=== PATIENT | female | born 1975 | race Caucasian/White ===

== ENCOUNTER 2017-02-05 17:36 | Emergency (ER) | payer OTHER ==
[~2017-02-05] VITALS: Ht 160 cm; Wt 161.4 kg
[~2017-02-05 17:36] MED LIST: CYCL-36 PO; DICL75 PO
[2017-02-05 17:48] VITALS: BP 185/83; PULSE 86; RESP 16; TEMP 99.3; O2SAT 98
--- NOTE | 2017-02-05 17:56 | PD ---
HPI Chief Complaint: Cold / Flu Symptoms Time Seen by Provider: 17:56 Travel History International Travel<30 days: Yes Contact w/Intl Traveler<30days: [place] Traveled to: [place] Traveled to known affect area: No History of Present Illness HPI 42-year-old female presents the emergency department with history of fever of 102.5, chills, cough, sore throat, chest congestion, and urinary symptoms since this morning. The fever and upper respiratory symptoms started 3 days ago. Patient states she feels worse today than she did yesterday. Significant history is that the patient just got off a cruise today. She denies nausea, vomiting, but has had some mild diarrhea. Chest feels tight and cough is nonproductive. Patient has generalized body aches with pain about a 6 out of 10. Urinary symptoms started first thing this morning. PFSH Past Medical History Blood Disorders: No Heart Rhythm Problems: No Cancer: No Cardiac Catheterization: No Cardiovascular Problems: No High Cholesterol: No Congestive Heart Failure: No Diabetes: No Diminished Hearing: No Endocrine: No Gastrointestinal Disorders: No Genitourinary: Yes Hypertension: No Immune Disorder: No Implanted Vascular Access Dvce: No Kidney Stones: Yes Musculoskeletal: No Neurologic: No Psychiatric: No Reproductive: No Respiratory: Yes (sleep apnea) Sleep Apnea: Yes (WEARS CPAP) ?: Not LMP: 2 weeks ago Menopausal: Yes : 1 Para: 1 Ovarian Cysts: Yes (bilateral) Past Surgical History Abdominal Surgery: No Cardiac Surgery: No Cholecystectomy: Yes (2012) Coronary Artery Bypass Graft: No Ear Surgery: No Endocrine Surgery: No Eye Surgery: No Genitourinary Surgery: No Gynecologic Surgery: No Neurologic Surgery: No Oral Surgery: No Pacemaker: No Thoracic Surgery: No Other Surgery: Yes Social History Alcohol Use: Yes (WINE OCCASIONALLY) Tobacco Use: No (QUIT JAN 2012) Substance Use: No Allergies-Medications (Allergen,Severity, Reaction): Coded Allergies: tramadol (Unverified Allergy, Severe, Anaphylaxis, 02/05/17) pt states does not have to this medication takes this medication for knee pain. estela Domingo 02/05/17 Reported Meds & Prescriptions Reported Meds & Active Scripts Active Flexeril (Cyclobenzaprine HCl) 10 Mg Tab 10 Mg PO TID PRN Do not drive on medication. Do not take with alcohol. Diclofenac Sodium 75 Mg Tab 75 Mg PO BID PRN Review of Systems Except as stated in HPI: all other systems reviewed are Neg General / Constitutional: Positive: Fever, Chills Eyes: No: Visual changes HENT: Positive: Headaches, Sore Throat, Rhinitis, Rhinorrhea, Congestion, No: Vertigo, Lightheadedness, Nosebleed, Neck Stiffness, Neck Pain, Ear Discharge, Earache Cardiovascular: No: Chest Pain or Discomfort Respiratory: Positive: Cough, Shortness of Breath, Wheezing, No: Sneezing Gastrointestinal: No: Nausea, Vomiting, Diarrhea, Abdominal Pain Genitourinary: Positive: Urgency, Frequency, Dysuria Musculoskeletal: No: Pain Skin: No Rash Neurologic: No: Weakness Psychiatric: No: Depression Endocrine: No: Polydipsia Hematologic/Lymphatic: No: Easy Bruising Physical Exam Narrative GENERAL: Patient appears ill but not septic. SKIN: Warm and dry. Normal color. Normal turgor. No rash. HEAD: Atraumatic. Normocephalic. EYES: Pupils equal and round. No scleral icterus. No injection or drainage. ENT: No nasal bleeding or discharge. Mucous membranes pink and moist. TMs are dull bilaterally with mild injection. Patient is no sinus tenderness with palpation. Patient is clear rhinitis.. Severe pharynx is generalized erythema and swelling without exudate. Uvula is midline. Airway is patent. NECK: Trachea midline. Supple nontender CARDIOVASCULAR: Regular rate and rhythm. RESPIRATORY: No accessory muscle use. Coarse breath sounds throughout to auscultation. No rhonchi or rales appreciated Breath sounds equal bilaterally. GASTROINTESTINAL: Abdomen soft, non-tender, nondistended. Hepatic and splenic margins not palpable. No CVA tenderness. MUSCULOSKELETAL: Extremities without clubbing, cyanosis, or edema. No obvious deformities. NEUROLOGICAL: Awake and alert. No obvious cranial nerve deficits. Motor grossly within normal limits. Five out of 5 muscle strength in the arms and legs. Normal speech. PSYCHIATRIC: Appropriate mood and affect; insight and judgment normal. Data Data Last Documented VS Vital Signs Date Time Temp Pulse Resp B/P (MAP) Pulse Ox O2 Delivery O2 Flow Rate FiO2 02/05/17 17:48 99.3 86 16 185/83 (117) 98 Orders Orders Influenzae A/B Antigen (02/05/17 18:03) Group A Rapid Strep Screen (02/05/17 18:03) Urinalysis - C+S If Indicated (02/05/17 18:03) Strep Culture (Group A) (02/05/17 18:00) Labs Laboratory Tests Test 02/05/17 18:00 Urine Collection Type CLEAN CATCH Urine Color YELLOW Urine Turbidity CLEAR Urine pH 6.5 Urine Specific [place] 1.020 Urine Protein NEG mg/dL Urine Glucose (UA) NEG mg/dL Urine Ketones NEG mg/dL Urine Occult Blood TRACE Urine Nitrite NEG Urine Bilirubin NEG Urine Leukocyte Esterase NEG Urine WBC 0-2 /hpf Urine Squamous Epithelial Cells 0-5 /hpf Microscopic Urinalysis Comment CULT NOT INDICATED MDM Medical Decision Making Medical Screen Exam Complete: Yes Emergency Medical Condition: Yes Differential Diagnosis Urinary tract infection. Dysuria. Upper respiratory infection. Influenza. Cough. Strep throat. Narrative Course Patient is medically stable at time of exam. Labs ordered including urinalysis, rapid influenza, and rapid strep. Rapid influenza is negative. Rapid strep is negative. Urinalysis is unremarkable. Patient will be treated with azithromycin Dosepak as directed. Patient also given Tussionex elixir, teaspoon every 12 hours when necessary cough Patient is to rest, take Tylenol and ibuprofen, push fluids. Patient follow-up if symptoms do not improve or worsen in the next several days. Diagnosis Primary Impression: Upper respiratory infection, acute Additional Impressions: Cough Fever and chills Referrals: Primary Care Physician Patient Instructions: Acute Bronchitis (ED), General Instructions Additional Instructions: Rapid influenza is negative. Rapid strep is negative. Urinalysis is unremarkable. Patient will be treated with azithromycin Dosepak as directed. Patient also given Tussionex elixir, teaspoon every 12 hours when necessary cough Patient is to rest, take Tylenol and ibuprofen, push fluids. Patient follow-up if symptoms do not improve or worsen in the next several days. Med/Other Pt SpecificInfo: Prescription(s) given Scripts Hydrocodone-Chlorpheniramine 12 HR Liq (Tussionex Pennkinetic Ext 12 HR Liq) 10- 8 Mg/5 Ml Susp 5 ML PO Q12H Y for COUGH AND/OR COLD SYMPTOMS, #60 ML 0 Refills Prov: Mohinder Wooten MD 02/05/17 Azithromycin (Azithromycin) 250 Mg Tab 250 MG PO DIRECTED for Infection, #6 TAB 0 Refills Take 2 tabs (500 mg) on day 1 then 1 tab daily x 4 days. Prov: Mohinder Wooten MD 02/05/17 Disposition: 01 DISCHARGE HOME Condition: Stable Shane Marrero Feb 05, 2017 17:56
[2017-02-05 18:35] LABS: BLOOD, URINE TRACE (NEG); GLUCOSE,URINE NEG (NEG); KETONE, URINE NEG (NEG); NITRITE,URINE NEG (NEG); PH, URINE 6.5 (5.0-8.5)
[2017-02-05 18:37] LABS: METHOD OF COLLECTION CLEAN CATCH; URINE COLOR YELLOW (YELLW/STRAW)
[2017-02-05 18:38] LABS: COMMENT (UR) CULT NOT INDICATED; CULTURE IF INDICATED CULT NOT INDICATED; SQUAMOUS EPITHELIAL CELL URINE 0-5 /hpf (0-5); WBC, URINE 0-2 /hpf (0-5)
[2017-02-05] MEDS ORDERED: AZIT250T3 PO (18:45)
[2017-02-05] MEDS ORDERED: TUSSSUS2 PO (18:45)
== END 2017-02-05 19:12 | disposition home or self-care (01) ==
LOC: PHEFT 17:36
DX: J06.9 Acute upper respiratory infection, unspecified (principal); Z87.891 Personal history of nicotine dependence
CPT/HCPCS: 81001; 87081; 87804; 87880; 99284

== ENCOUNTER → 2017-02-21 | Emergency (ER) | payer OTHER ==
[~2017-02-21] VITALS: Ht 160 cm; Wt 161.0 kg
[~2017-02-21] MED LIST changes: +AZIT250T3 PO; +BACT800T5 PO; +CEPH-460 PO; +TUSSSUS2 PO
[2017-02-21 22:27] VITALS: BP 171/98; PULSE 87; RESP 18; TEMP 98.8; O2SAT 98
== END | disposition left against medical advice (07) ==
LOC: PHED 22:12
DX: S80.862A Insect bite (nonvenomous), left lower leg, initial encounter (principal); W57.XXXA Bitten or stung by nonvenomous insect and other nonvenomous arthropods, initial encounter
CPT/HCPCS: 99281

== ENCOUNTER 2017-02-22 08:09 | Emergency (ER) | payer OTHER ==
[~2017-02-22] VITALS: Ht 160 cm; Wt 160.0 kg
[~2017-02-22 08:09] MED LIST changes: -BACT800T5 PO; -CEPH-460 PO
[2017-02-22 08:10] VITALS: BP 193/88; PULSE 71; RESP 16; TEMP 98.9; O2SAT 98
[2017-02-22 08:27] VITALS: BP 132/67; PULSE 66; RESP 21; O2SAT 98
[2017-02-22] MEDS ORDERED: CEPH-460 PO (08:27)
[2017-02-22] MEDS ORDERED: BACT800T5 PO (08:28)
--- NOTE | 2017-02-22 08:29 | PD ---
HPI Chief Complaint: Skin Problem Time Seen by Provider: 08:20 Travel History International Travel<30 days: No Contact w/Intl Traveler<30days: Yes Name of Country Traveled to: [place], [place] Traveled to known affect area: No History of Present Illness HPI 42-year-old female states she had a insect bite to her right thigh that got infected so she went to her primary early this week and was placed on Keflex. When it got worse she went to [place] [facility] last night but left without being seen as it hurt to be sitting. She states that she has no other concurrent complaints. She states that she has been taking Motrin and Tylenol for the pain. Quality is red. She shows me pictures as to how it was which involve redness extensively to her upper thigh. She's never had any joint involvement. PFSH Past Medical History Blood Disorders: No Heart Rhythm Problems: No Cancer: No Cardiac Catheterization: No Cardiovascular Problems: No High Cholesterol: No Congestive Heart Failure: No Diabetes: No Diminished Hearing: No Endocrine: No Gastrointestinal Disorders: No Genitourinary: Yes Heparin Induced Thrombocytopen: No Hypertension: No Immune Disorder: No Implanted Vascular Access Dvce: No Kidney Stones: Yes Musculoskeletal: No Neurologic: No Psychiatric: No Reproductive: No Respiratory: Yes (sleep apnea) Sleep Apnea: Yes (WEARS CPAP) Tetanus Vaccination: > 5 Years Influenza Vaccination: No ?: Not Menopausal: Yes : 1 Para: 1 Ovarian Cysts: Yes (bilateral) Past Surgical History Abdominal Surgery: No Cardiac Surgery: No Cholecystectomy: Yes (2012) Coronary Artery Bypass Graft: No Ear Surgery: No Endocrine Surgery: No Eye Surgery: No Genitourinary Surgery: No Gynecologic Surgery: No Oral Surgery: No Pacemaker: No Thoracic Surgery: No Other Surgery: Yes Social History Alcohol Use: Yes (WINE OCCASIONALLY) Tobacco Use: No (QUIT JAN 2012) Substance Use: No Allergies-Medications (Allergen,Severity, Reaction): Coded Allergies: tramadol (Unverified Allergy, Severe, Anaphylaxis, 02/22/17) pt states does not have to this medication takes this medication for knee pain. estela Domingo 02/05/17 Reported Meds & Prescriptions Reported Meds & Active Scripts Active Bactrim DS (Sulfamethoxazole-Trimethoprim) 800-160 Mg Tab 1 Tab PO BID 7 Days Reported Keflex (Cephalexin) 500 Mg Capsule 500 Mg PO TID Review of Systems Except as stated in HPI: all other systems reviewed are Neg Physical Exam Narrative GENERAL: Well-nourished, well-developed patient. SKIN: To upper inner right thigh there is approximately quarter-sized area of redness that has a central opening without underlying induration or crepitus HEAD: Normocephalic and atraumatic. EYES: No injection or drainage. ENT: No nasal drainage noted. NECK: Supple, trachea midline. CARDIOVASCULAR: Regular rate and rhythm RESPIRATORY: No increased effort. No accessory muscle use. GASTROINTESTINAL: Abdomen soft, non-tender, nondistended. NEUROLOGICAL: Awake and alert. Motor and sensory grossly within normal limits. Normal speech. Data Data Last Documented VS Vital Signs Date Time Temp Pulse Resp B/P (MAP) Pulse Ox O2 Delivery O2 Flow Rate FiO2 02/22/17 08:27 66 21 132/67 (88) 98 Room Air 02/22/17 08:10 98.9 Orders Orders Blood Glucose (02/22/17 08:27) [facility] Medical Decision Making Medical Screen Exam Complete: Yes Emergency Medical Condition: Yes Medical Record Reviewed: Yes (pmh confirmed) Interpretation(s) glucose 101 Differential Diagnosis Diabetes, cellulitis, insect bite, abscess Narrative Course Patient has what appears to be healing cellulitis from an insect bite but to provide staph coverage I will add Bactrim as by now it should be fully resolved given duration of antibiotic therapy. Patient agrees to this plan of care and warm compresses. No drainable abscess currently. Advised to follow with primary for recheck in 2 days, given return instructions Diagnosis Primary Impression: Insect bite Qualified Codes: W57.XXXA - Bitten or stung by nonvenomous insect and other nonvenomous arthropods, initial encounter Additional Impression: Cellulitis Qualified Codes: L03.115 - Cellulitis of right lower limb Patient Instructions: General Instructions Additional Instructions: warm compresses to area three times a day, follow with primary for recheck on monday, return as needed Med/Other Pt SpecificInfo: Prescription(s) given Scripts Sulfamethoxazole-Trimethoprim (Bactrim DS) 800-160 Mg Tab 1 TAB PO BID for Infection for 7 Days, #14 TAB 0 Refills Prov: Kortney Anderson MD 02/22/17 Disposition: 01 DISCHARGE HOME Condition: Stable Kortney Anderson MD Feb 22, 2017 08:29
== END 2017-02-22 08:56 | disposition home or self-care (01) ==
LOC: NEPE 08:09
DX: L03.115 Cellulitis of right lower limb (principal); G47.30 Sleep apnea, unspecified; Z87.442 Personal history of urinary calculi; Z79.899 Other long term (current) drug therapy; Z88.5 Allergy status to narcotic agent
CPT/HCPCS: 99283

== ENCOUNTER 2017-05-16 09:04 | Emergency (ER) | payer OTHER ==
[~2017-05-16] VITALS: Ht 160 cm; Wt 160.0 kg
[~2017-05-16 09:04] MED LIST changes: -AZIT250T3 PO; +BACT800T5 PO; +CEPH-460 PO; -CYCL-36 PO; -DICL75 PO; -TUSSSUS2 PO
[2017-05-16 09:07] VITALS: BP 179/99; PULSE 98; RESP 18; TEMP 100.1; O2SAT 97
[2017-05-16] MEDS ORDERED: SODIUM CHLOR 0.9% 1000 ML INJ 1,000 ML IV SCH (09:41)
[2017-05-16] MEDS ORDERED: SODIUM CHLORIDE 0.9% FLUSH 10 ML FLUSH IV FLUSH PRN (09:45)
[2017-05-16] MEDS ORDERED: ONDANSETRON HCL 4 MG/2 ML VIAL IVP ONE (09:45)
--- NOTE | 2017-05-16 09:54 | PD ---
HPI Chief Complaint: GI Complaint Time Seen by Provider: 09:14 Travel History International Travel<30 days: No Contact w/Intl Traveler<30days: No Traveled to known affect area: No History of Present Illness HPI The patient was seen and examined in the presence of the nurse. This patient complains of vomiting and diarrhea. Duration 3 days. Severity is moderate. 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 She is not having some low-grade fevers. Denies cough. No alleviating factors. Symptoms exacerbated by current outbreak at intermediate [facility] Past Medical History Blood Disorders: No Heart Rhythm Problems: No Cancer: No Cardiac Catheterization: No Cardiovascular Problems: No High Cholesterol: No Congestive Heart Failure: No Diabetes: No Diminished Hearing: No Endocrine: No Gastrointestinal Disorders: No Genitourinary: Yes Heparin Induced Thrombocytopen: No Hypertension: No Immune Disorder: No Implanted Vascular Access Dvce: No Kidney Stones: Yes Musculoskeletal: No Neurologic: No Psychiatric: No Reproductive: No Respiratory: Yes (sleep apnea) Sleep Apnea: Yes (WEARS CPAP) ?: Not Menopausal: Yes : 1 Para: 1 Ovarian Cysts: Yes (bilateral) Past Surgical History Abdominal Surgery: No Cardiac Surgery: No Cholecystectomy: Yes (2012) Coronary Artery Bypass Graft: No Ear Surgery: No Endocrine Surgery: No Eye Surgery: No Genitourinary Surgery: No Gynecologic Surgery: No Oral Surgery: No Pacemaker: No Thoracic Surgery: No Other Surgery: Yes Social History Alcohol Use: Yes (WINE OCCASIONALLY) Tobacco Use: No (QUIT JAN 2012) Substance Use: No Allergies-Medications (Allergen,Severity, Reaction): Coded Allergies: No Known Allergies (Unverified , 05/16/17) Reported Meds & Prescriptions Reported Meds & Active Scripts Active Zofran (Ondansetron HCl) 4 Mg Tab 4 Mg PO Q6HR PRN Bactrim DS (Sulfamethoxazole-Trimethoprim) 800-160 Mg Tab 1 Tab PO BID 7 Days Reported Keflex (Cephalexin) 500 Mg Capsule 500 Mg PO TID Review of Systems General / Constitutional: Positive: Fever Eyes: No: Visual changes HENT: No: Headaches Cardiovascular: No: Chest Pain or Discomfort Respiratory: No: Shortness of Breath Gastrointestinal: Positive: Nausea, Vomiting, Diarrhea, No: Abdominal Pain Genitourinary: No: Dysuria Musculoskeletal: No: Pain Skin: No Rash Neurologic: No: Weakness Psychiatric: No: Depression Endocrine: No: Polydipsia Hematologic/Lymphatic: No: Easy Bruising Physical Exam Narrative GENERAL: Well-nourished, well-developed patient in no apparent distress. SKIN: Focused skin assessment reveals no rash and nodules. Skin is Warm and dry. HEAD: Atraumatic. Normocephalic. EYES: Pupils equal and round. No scleral icterus. No injection or drainage. ENT: No nasal bleeding or discharge. Mucous membranes pink and moist. NECK: Trachea midline. No JVD. CARDIOVASCULAR: Regular rate and rhythm. No murmur appreciated. RESPIRATORY: No accessory muscle use. Clear to auscultation. Breath sounds equal bilaterally. GASTROINTESTINAL: Abdomen soft, non-tender, morbidly obese, nondistended. Hepatic and splenic margins not palpable. MUSCULOSKELETAL: No obvious deformities. No clubbing. No cyanosis. No edema. NEUROLOGICAL: Awake and alert. No obvious cranial nerve deficits. Motor grossly within normal limits. Normal speech. PSYCHIATRIC: Appropriate mood and affect; insight and judgment normal. Data Data Last Documented VS Vital Signs Date Time Temp Pulse Resp B/P (MAP) Pulse Ox O2 Delivery O2 Flow Rate FiO2 05/16/17 09:07 100.1 98 18 179/99 (125) 97 Orders Orders Basic Metabolic Panel (Bmp) (05/16/17 09:41) Complete Blood Count With Diff (05/16/17 09:41) Iv Access Insert/Monitor (05/16/17 09:41) Ondansetron Inj (Zofran Inj) (05/16/17 09:45) Sodium Chlor 0.9% 1000 Ml Inj (Ns 1000 M (05/16/17 09:41) Sodium Chloride 0.9% Flush (Ns Flush) (05/16/17 09:45) Labs Laboratory Tests Test 05/16/17 09:56 05/16/17 11:00 White Blood Count 9.2 TH/MM3 Red Blood Count 5.52 MIL/MM3 Hemoglobin 16.2 GM/DL Hematocrit 47.1 % Mean Corpuscular Volume 85.3 FL Mean Corpuscular Hemoglobin 29.3 PG Mean Corpuscular Hemoglobin Concent 34.4 % Red Cell Distribution Width 13.4 % Platelet Count 204 TH/MM3 Mean Platelet Volume 7.7 FL Neutrophils (%) (Auto) 88.2 % Lymphocytes (%) (Auto) 5.9 % Monocytes (%) (Auto) 5.1 % Eosinophils (%) (Auto) 0.4 % Basophils (%) (Auto) 0.4 % Neutrophils # (Auto) 8.1 TH/MM3 Lymphocytes # (Auto) 0.5 TH/MM3 Monocytes # (Auto) 0.5 TH/MM3 Eosinophils # (Auto) 0.0 TH/MM3 Basophils # (Auto) 0.0 TH/MM3 CBC Comment DIFF FINAL Differential Comment Blood Urea Nitrogen 12 MG/DL Creatinine 0.73 MG/DL Random Glucose 83 MG/DL Calcium Level 7.9 MG/DL Sodium Level 138 MEQ/L Potassium Level 4.8 MEQ/L Chloride Level 108 MEQ/L Carbon Dioxide Level 24.2 MEQ/L Anion Gap 6 MEQ/L Estimat Glomerular Filtration Rate 88 ML/MIN MDM Medical Decision Making Medical Screen Exam Complete: Yes Emergency Medical Condition: Yes Medical Record Reviewed: Yes Differential Diagnosis Gastroenteritis, food poisoning, colitis Narrative Course I have reviewed the patient's electronic medical record. IV placed CBC is normal metabolic profile is reasonably normal Gave her 1 L IV normal saline and 4 mg IV Zofran Abdomen soft and benign and nontender Patient is well-hydrated and stable for outpatient follow-up. Seemed to have a viral gastroenteritis. Zofran prescribed. Diagnosis Primary Impression: Viral gastroenteritis Additional Instructions: The patient was advised to follow up with their physician and return if they worsen. Med/Other Pt SpecificInfo: Prescription(s) given Scripts Ondansetron (Zofran) 4 Mg Tab 4 MG PO Q6HR Y for NAUSEA OR VOMITING, #12 TAB 0 Refills Prov: Dario Starkey MD 05/16/17 Disposition: DISCHARGE HOME Condition: Stable Dario Starkey MD May 16, 2017 09:54
[2017-05-16 10:08] LABS: AUTOMATED NEUTROPHIL # 8.1 TH/MM3 (1.8-7.7); BASOPHIL % 0.4 % (0.0-2.0); EOSINOPHIL % 0.4 % (0.0-4.0); HEMATOCRIT 47.1 % (35.0-46.0); HEMOGLOBIN 16.2 GM/DL (11.6-15.3); LYMPH % 5.9 % (9.0-44.0); LYMPHOCYTE # 0.5 TH/MM3 (1.0-4.8); MEAN CELL VOLUME 85.3 FL (80.0-100.0); MEAN CORPUSCULAR HEMOGLOBIN 29.3 PG (27.0-34.0); MEAN CORPUSCULAR HGB CONC 34.4 % (32.0-36.0); MEAN PLATELET VOLUME 7.7 FL (7.0-11.0); MONO % 5.1 % (0.0-8.0); MONOCYTE # 0.5 TH/MM3 (0-0.9); NEUT % 88.2 % (16.0-70.0); PLATELET COUNT 204 TH/MM3 (150-450); RED BLOOD COUNT 5.52 MIL/MM3 (4.00-5.30); RED CELL DISTRIBUTION WIDTH 13.4 % (11.6-17.2); WHITE BLOOD COUNT 9.2 TH/MM3 (4.0-11.0)
[2017-05-16 11:45] LABS: BICARBONATE 24.2 MEQ/L (21.0-32.0); CALCIUM 7.9 MG/DL (8.5-10.1); CREATININE 0.73 MG/DL (0.50-1.00)
[2017-05-16] MEDS ORDERED: ZOFR4TAB PO (12:28)
== END 2017-05-16 13:03 | disposition home or self-care (01) ==
LOC: NEPD 09:04
DX: A08.4 Viral intestinal infection, unspecified (principal)
CPT/HCPCS: 80048; 85025; 96360; 99284; J2405; J7030

== ENCOUNTER 2017-08-23 06:49 | Emergency (ER) | payer OTHER ==
[~2017-08-23] VITALS: Ht 157.5 cm; Wt 146.0 kg
[~2017-08-23 06:49] MED LIST changes: +ZOFR4TAB PO
[2017-08-23 07:04] VITALS: BP 156/95; PULSE 72; RESP 16; TEMP 98.5; O2SAT 99
[2017-08-23] MEDS ORDERED: IBUPROFEN 800 MG TAB PO ONE (07:15)
--- NOTE | 2017-08-23 07:36 | PD ---
HPI Chief Complaint: Injury Time Seen by Provider: 07:10 Travel History International Travel<30 days: No Contact w/Intl Traveler<30days: No Traveled to known affect area: No History of Present Illness HPI 42-year-old female presents emergency department with pain, redness, and swelling to the left ulnar wrist. Patient states she was helping a friend move yesterday moving a heavy box, when she felt something "pop" in her left wrist. She now has increasing pain, swelling, redness, and decreased range of motion secondary to pain over the distal ulna. She denies numbness, tingling, or weakness other than from pain. Pain is currently 8 out of 10. Range of motion is limited secondary to pain. She has no known drug allergies. PFSH Past Medical History Blood Disorders: No Heart Rhythm Problems: No Cancer: No Cardiac Catheterization: No Cardiovascular Problems: No High Cholesterol: No Congestive Heart Failure: No Diabetes: No Diminished Hearing: No Endocrine: No Gastrointestinal Disorders: No Genitourinary: Yes Heparin Induced Thrombocytopen: No Hypertension: No Immune Disorder: No Implanted Vascular Access Dvce: No Kidney Stones: Yes Musculoskeletal: No Neurologic: No Psychiatric: No Reproductive: No Respiratory: Yes (sleep apnea) Sleep Apnea: Yes (WEARS CPAP) ?: Not Menopausal: Yes : 1 Para: 1 Ovarian Cysts: Yes (bilateral) Past Surgical History Abdominal Surgery: No Cardiac Surgery: No Cholecystectomy: Yes (2012) Coronary Artery Bypass Graft: No Ear Surgery: No Endocrine Surgery: No Eye Surgery: No Genitourinary Surgery: No Gynecologic Surgery: No Oral Surgery: No Pacemaker: No Thoracic Surgery: No Other Surgery: Yes Social History Alcohol Use: Yes (WINE OCCASIONALLY) Tobacco Use: Yes (QUIT JAN 2012) Substance Use: No Allergies-Medications (Allergen,Severity, Reaction): Coded Allergies: No Known Allergies (Unverified , 05/16/17) Reported Meds & Prescriptions Reported Meds & Active Scripts Active Ibuprofen 600 Mg Tab 600 Mg PO Q6H PRN Zofran (Ondansetron HCl) 4 Mg Tab 4 Mg PO Q6HR PRN Bactrim DS (Sulfamethoxazole-Trimethoprim) 800-160 Mg Tab 1 Tab PO BID 7 Days Reported Keflex (Cephalexin) 500 Mg Capsule 500 Mg PO TID Review of Systems Except as stated in HPI: all other systems reviewed are Neg General / Constitutional: No: Fever Eyes: No: Visual changes HENT: No: Headaches Cardiovascular: No: Chest Pain or Discomfort Respiratory: No: Shortness of Breath Gastrointestinal: No: Abdominal Pain Genitourinary: No: Dysuria Musculoskeletal: Positive: Arthralgias, Limited ROM, Pain (See history of present illness) Skin: No Rash Neurologic: No: Weakness Psychiatric: No: Depression Endocrine: No: Polydipsia Hematologic/Lymphatic: No: Easy Bruising Physical Exam Narrative GENERAL: Patient appears in mild distress per SKIN: Warm and dry. Normal color. Normal turgor. Patient has what appears to be bruising and erythema over the distal left ulna. No open wounds or abrasions. HEAD: Atraumatic. Normocephalic. EYES: Pupils equal and round. No scleral icterus. No injection or drainage. ENT: No nasal bleeding or discharge. Mucous membranes pink and moist. Pharynx is clear. Airways patent NECK: Trachea midline. Supple and nontender. CARDIOVASCULAR: Regular rate and rhythm. RESPIRATORY: No accessory muscle use. Clear to auscultation. Breath sounds equal bilaterally. MUSCULOSKELETAL: Extremities without clubbing, cyanosis, or edema. No obvious deformities. Patient has severe pain with palpation over the distal ulna, and decreased range of motion secondary to pain in this area in the left hand and wrist. Neurovascular exam is intact. NEUROLOGICAL: Awake and alert. No obvious cranial nerve deficits. Motor grossly within normal limits. Five out of 5 muscle strength in the arms and legs. Normal speech. PSYCHIATRIC: Appropriate mood and affect; insight and judgment normal. Data Data Last Documented VS Vital Signs Date Time Temp Pulse Resp B/P (MAP) Pulse Ox O2 Delivery O2 Flow Rate FiO2 08/23/17 07:04 98.5 72 16 156/95 (115) 99 Orders Orders Wrist, Complete ([id number]) (08/23/17 07:13) Ice/Cold Pack (08/23/17 07:13) Ibuprofen (Motrin) (08/23/17 07:15) Splinting (08/23/17 ) [facility] Medical Decision Making Medical Screen Exam Complete: Yes Emergency Medical Condition: Yes Differential Diagnosis Wrist sprain. Ulnar fracture. Carpal fracture. Narrative Course Ice pack is placed over the injured area. Patient is given ibuprofen 800 mg p.o. now. X-ray of the left wrist is obtained. No obvious fracture or dislocation is identified. Patient is placed in an ulnar gutter splint. Patient is given ibuprofen 600 mg 4 times daily #40. Recommend the patient follow-up with Dr. Mireles, the hand surgeon to ensure resolution. Repeat x-rays may be warranted if his pain continues. Diagnosis Primary Impression: Left wrist sprain Qualified Codes: S63.502A - Unspecified sprain of left wrist, initial encounter Referrals: Joselito Elaine III, MD Patient Instructions: General Instructions, Splint Care (ED), Wrist Sprain (ED) Additional Instructions: No obvious fracture or dislocation is identified. Patient is placed in an ulnar gutter splint. Patient is given ibuprofen 600 mg 4 times daily #40. Recommend the patient follow-up with Dr. Mireles, the hand surgeon to ensure resolution. Repeat x-rays may be warranted if his pain continues. Med/Other Pt SpecificInfo: Prescription(s) given Scripts Ibuprofen (Ibuprofen) 600 Mg Tab 600 MG PO Q6H Y for Pain/Inflammation, #40 TAB 0 Refills Prov: Dario Starkey MD 08/23/17 Disposition: 01 DISCHARGE HOME Condition: Stable Shane Marrero Aug 23, 2017 07:36
--- NOTE | 2017-08-23 07:54 | RADRPT ---
EXAM DATE/TIME: 08/23/2017 07:38 [place] COMPARISON: No previous studies available for comparison. INDICATIONS : Left wrist pain, heard pop when moving furniture. MEDICAL HISTORY : None. SURGICAL HISTORY : None. ENCOUNTER: Initial ACUITY: 3 days PAIN SCORE: 10/10 LOCATION: Left medial wrist FINDINGS: Three view examination of the left wrist demonstrates no soft tissue swelling, dislocation, or fractu re. The carpal bones are in normal alignment. The joint spaces are maintained. Bony mineralization is normal. On the lateral view, there are 2 small calcifications in the soft tissues along the ventr al surface of the wrist. CONCLUSION: No acute fracture or dislocation. Joseph Lozano MD on August 23, 2017 at 7:50 Board Certified Radiologist. This report was verified electronically.
[2017-08-23] MEDS ORDERED: IBUP-232 PO (08:09)
== END 2017-08-23 09:00 | disposition home or self-care (01) ==
LOC: NEPD 06:49
DX: S63.502A Unspecified sprain of left wrist, initial encounter (principal); X50.9XXA Other and unspecified overexertion or strenuous movements or postures, initial encounter; Y93.89 Activity, other specified
CPT/HCPCS: 29125; 73110

== ENCOUNTER 2017-09-22 19:03 | Emergency (ER) | payer OTHER ==
[~2017-09-22] VITALS: Ht 160 cm; Wt 113.5 kg
[~2017-09-22 19:03] MED LIST changes: +IBUP-232 PO
[2017-09-22 19:13] VITALS: BP 206/146; PULSE 65; RESP 22; TEMP 99.1; O2SAT 98
[2017-09-22] MEDS ORDERED: SODIUM CHLOR 0.9% 1000 ML INJ 1,000 ML IV ONE ×2 (19:38→21:30)
[2017-09-22] MEDS ORDERED: ONDANSETRON HCL 4 MG/2 ML VIAL IV PUSH ONE (19:45)
[2017-09-22] MEDS ORDERED: HYDROmorphone HCL PF 1 MG/ML VIAL IV PUSH ONE (19:45)
[2017-09-22] MEDS ORDERED: KETOROLAC TROMETHAMINE 30 MG/ML (IVP) VIAL IV PUSH ONE (19:45)
[2017-09-22] MEDS ORDERED: HYDROmorphone HCL PF 2 MG/ML VIAL ONE ×2 (19:52→20:25)
[2017-09-22 20:11] LABS: AUTOMATED NEUTROPHIL # 8.7 TH/MM3 (1.8-7.7); BASOPHIL % 0.4 % (0.0-2.0); EOSINOPHIL # 0.1 TH/MM3 (0-0.4); EOSINOPHIL % 1.3 % (0.0-4.0); HEMATOCRIT 43.2 % (35.0-46.0); HEMOGLOBIN 14.9 GM/DL (11.6-15.3); LYMPH % 14.9 % (9.0-44.0); LYMPHOCYTE # 1.7 TH/MM3 (1.0-4.8); MEAN CELL VOLUME 83.1 FL (80.0-100.0); MEAN CORPUSCULAR HEMOGLOBIN 28.6 PG (27.0-34.0); MEAN CORPUSCULAR HGB CONC 34.5 % (32.0-36.0); MEAN PLATELET VOLUME 7.5 FL (7.0-11.0); MONO % 5.5 % (0.0-8.0); MONOCYTE # 0.6 TH/MM3 (0-0.9); NEUT % 77.9 % (16.0-70.0); PLATELET COUNT 195 TH/MM3 (150-450); WHITE BLOOD COUNT 11.1 TH/MM3 (4.0-11.0)
[2017-09-22 20:32] VITALS: RESP 20
[2017-09-22 20:36] LABS: ALKALINE PHOSPHATASE 91 U/L (45-117); ALT (GPT) 57 U/L (10-53); TOTAL BILIRUBIN ADULT 0.5 MG/DL (0.2-1.0); TOTAL PROTEIN 7.5 GM/DL (6.4-8.2)
[2017-09-22 20:39] LABS: ALBUMIN 3.8 GM/DL (3.4-5.0); AST (GOT) 39 U/L (15-37); BICARBONATE 23.9 MEQ/L (21.0-32.0); BLOOD UREA NITROGEN 13 MG/DL (7-18); CALCIUM 8.8 MG/DL (8.5-10.1); CHLORIDE 107 MEQ/L (98-107); CREATININE 0.88 MG/DL (0.50-1.00); GLOMERULAR FILTRATION RATE 71 ML/MIN (>89); GLUCOSE,RANDOM 125 MG/DL (74-106); SODIUM (NA) 140 MEQ/L (136-145)
--- NOTE | 2017-09-22 20:49 | PD ---
HPI Chief Complaint: Flank/Kidney Pain Time Seen by Provider: 19:23 Travel History International Travel<30 days: No Contact w/Intl Traveler<30days: No Traveled to known affect area: No History of Present Illness HPI 42-year-old female that presents to the ED for evaluation of left-sided flank pain. Patient reports history of kidney stones. Per patient she developed a flank pain for the past couple days but more severe today. Per patient the pain since 4:00 has been unbearable. Per patient the pain is 10 out of 10. Only on the left side. She states that she has had to have surgery for her kidney stones in the past. She states having dysuria and polyuria. She is having some nausea but no vomiting. Some abdominal pain on the left side but mostly on the flank. No chest pain or shortness of breath. No bowel movement issues. No allergies to medication. Denies any trauma. Has no urologist at this time. No allergies to medication. Took a tramadol from an old prescription with no relief. PFSH Past Medical History Blood Disorders: No Heart Rhythm Problems: No Cancer: No Cardiac Catheterization: No Cardiovascular Problems: No High Cholesterol: No Congestive Heart Failure: No Diabetes: No Diminished Hearing: No Endocrine: No Gastrointestinal Disorders: No Genitourinary: Yes Heparin Induced Thrombocytopen: No Hypertension: No Immune Disorder: No Implanted Vascular Access Dvce: No Kidney Stones: Yes Musculoskeletal: No Neurologic: No Psychiatric: No Reproductive: No Respiratory: Yes (sleep apnea) Sleep Apnea: Yes (WEARS CPAP) Tetanus Vaccination: < 5 Years Influenza Vaccination: Yes ?: Not LMP: 09/22/17 Menopausal: Yes : 1 Para: 1 Ovarian Cysts: Yes (bilateral) Past Surgical History Abdominal Surgery: No Cardiac Surgery: No Cholecystectomy: Yes (2012) Coronary Artery Bypass Graft: No Ear Surgery: No Endocrine Surgery: No Eye Surgery: No Genitourinary Surgery: No Gynecologic Surgery: No Oral Surgery: No Pacemaker: No Thoracic Surgery: No Other Surgery: Yes Social History Alcohol Use: Yes (WINE OCCASIONALLY) Tobacco Use: Yes (1 PPW) Substance Use: No Allergies-Medications (Allergen,Severity, Reaction): Coded Allergies: No Known Allergies (Unverified , 05/16/17) Reported Meds & Prescriptions Reported Meds & Active Scripts Active Zofran Odt (Ondansetron Odt) 4 Mg Tab 4 Mg SL Q6HR PRN Diclofenac Sodium DR (Diclofenac Sodium) 75 Mg Tabdr 75 Mg PO BID PRN Hydrocodone-Acetaminophen 7.5 Mg-325 Mg Tab 1 Tab PO Q6H PRN Review of Systems Except as stated in HPI: all other systems reviewed are Neg Physical Exam Narrative GENERAL: Morbidly obese SKIN: Warm and dry. HEAD: Atraumatic. Normocephalic. EYES: Pupils equal and round. No scleral icterus. No injection or drainage. ENT: No nasal bleeding or discharge. Mucous membranes pink and moist. Tongue is midline. No uvula deviation. NECK: Trachea midline. No JVD. CARDIOVASCULAR: Regular rate and rhythm. No murmurs, S3, S4. RESPIRATORY: No accessory muscle use. Clear to auscultation. Breath sounds equal bilaterally. GASTROINTESTINAL: Abdomen soft, non-tender, nondistended. Hepatic and splenic margins not palpable. Patient has reproducible flank pain on the left side compared to the right. MUSCULOSKELETAL: Extremities without clubbing, cyanosis, or edema. No obvious deformities. Full range of motion of the upper and lower extremities bilaterally. 2+ pulses bilaterally. NEUROLOGICAL: Awake and alert. No obvious cranial nerve deficits. Motor grossly within normal limits. Five out of 5 muscle strength in the arms and legs. Normal speech. PSYCHIATRIC: Appropriate mood and affect; insight and judgment normal. Data Data Last Documented VS Vital Signs Date Time Temp Pulse Resp B/P (MAP) Pulse Ox O2 Delivery O2 Flow Rate FiO2 09/22/17 20:32 20 09/22/17 19:13 99.1 65 206/146 (166) 98 Room Air Orders Orders Complete Blood Count With Diff (09/22/17 19:38) Comprehensive Metabolic Panel (09/22/17 19:38) Urinalysis - C+S If Indicated (09/22/17 19:38) Ed Urine Pregnancytest Poc (09/22/17 19:38) Ct Abd/Pel W/O Iv Contrast (09/22/17 19:38) Ecg Monitoring (09/22/17 19:38) Iv Access Insert/Monitor (09/22/17 19:38) Ketorolac Inj (Toradol Inj) (09/22/17 19:45) Sodium Chlor 0.9% 1000 Ml Inj (Ns 1000 M (09/22/17 19:38) Hydromorphone Pf Inj (Dilaudid Pf Inj) (09/22/17 19:45) Ondansetron Inj (Zofran Inj) (09/22/17 19:45) Hydromorphone Pf Inj (Dilaudid Pf Inj) (09/22/17 19:52) Hydromorphone Pf Inj (Dilaudid Pf Inj) (09/22/17 20:25) Hydromorphone Pf Inj (Dilaudid Pf Inj) (09/22/17 21:30) Sodium Chlor 0.9% 1000 Ml Inj (Ns 1000 M (09/22/17 21:30) Labs Laboratory Tests Test 09/22/17 19:50 09/22/17 21:25 White Blood Count 11.1 TH/MM3 Red Blood Count 5.20 MIL/MM3 Hemoglobin 14.9 GM/DL Hematocrit 43.2 % Mean Corpuscular Volume 83.1 FL Mean Corpuscular Hemoglobin 28.6 PG Mean Corpuscular Hemoglobin Concent 34.5 % Red Cell Distribution Width 13.0 % Platelet Count 195 TH/MM3 Mean Platelet Volume 7.5 FL Neutrophils (%) (Auto) 77.9 % Lymphocytes (%) (Auto) 14.9 % Monocytes (%) (Auto) 5.5 % Eosinophils (%) (Auto) 1.3 % Basophils (%) (Auto) 0.4 % Neutrophils # (Auto) 8.7 TH/MM3 Lymphocytes # (Auto) 1.7 TH/MM3 Monocytes # (Auto) 0.6 TH/MM3 Eosinophils # (Auto) 0.1 TH/MM3 Basophils # (Auto) 0.0 TH/MM3 CBC Comment DIFF FINAL Differential Comment Blood Urea Nitrogen 13 MG/DL Creatinine 0.88 MG/DL Random Glucose 125 MG/DL Total Protein 7.5 GM/DL Albumin 3.8 GM/DL Calcium Level 8.8 MG/DL Alkaline Phosphatase 91 U/L Aspartate Amino Transf (AST/SGOT) 39 U/L Alanine Aminotransferase (ALT/SGPT) 57 U/L Total Bilirubin 0.5 MG/DL Sodium Level 140 MEQ/L Potassium Level 4.5 MEQ/L Chloride Level 107 MEQ/L Carbon Dioxide Level 23.9 MEQ/L Anion Gap 9 MEQ/L Estimat Glomerular Filtration Rate 71 ML/MIN MDM Medical Decision Making Medical Screen Exam Complete: Yes Emergency Medical Condition: Yes Medical Record Reviewed: Yes Interpretation(s) CBC & BMP Diagram 09/22/17 19:50 Total Protein 7.5, Albumin 3.8, Calcium Level 8.8, Alkaline Phosphatase 91, Aspartate Amino Transf (AST/SGOT) 39 H, Alanine Aminotransferase (ALT/SGPT) 57 H , Total Bilirubin 0.5 CT showed stone in the UVJ of 5mms. Differential Diagnosis Kidney stone versus flank pain versus ureterolithiasis versus muscle strain versus muscle spasm versus acute on chronic pain versus chronic pain Narrative Course 42-year-old female that presents to the ED for evaluation of flank pain. Patient was properly examined and was found to have signs and symptoms concerning for kidney stone. Labs and imaging order. Patient was given IV pain medications. Fluids given. Labs and imaging showed a 5 mm stone on the left kidney. Appears to be around UVJ area with mild hydronephrosis. Patient was told that this has a high likelihood of passing. Patient agrees with plan. Patient was given a second dose of pain medication to help with symptoms. She feels improved. My attending was made aware of findings. Patient will be discharged home with prescriptions for Lortab, baclofen sodium and Zofran. Told to follow closely with PCP. Follow-up with urologist. See ED worsening symptoms. Diagnosis Primary Impression: Nephrolithiasis Referrals: Alden Mohan MD, Shawn Wayne DO Patient Instructions: General Instructions, Narcotic given in the ED Additional Instructions: Take medications as prescribed. Follow-up with PCP. See ED for any worsening symptoms. Do not drink or drive while taking pain medication. Apply ice or heat as needed for pain Med/Other Pt SpecificInfo: Prescription(s) given Scripts Ondansetron Odt (Zofran Odt) 4 Mg Tab 4 MG SL Q6HR Y for Nausea/Vomiting, #20 TAB 0 Refills Prov: José Ga MD 09/22/[address] (Diclofenac Sodium DR) 75 Mg Tabdr 75 MG PO BID Y for PAIN SCALE 1 TO 10, #20 TAB 0 Refills Prov: José Ga MD 09/22/17 Hydrocodone-Acetaminophen (Hydrocodone-Acetaminophen) 7.5 Mg-325 Mg Tab 1 TAB PO Q6H Y for PAIN, #12 TAB 0 Refills Prov: José Ga MD 5/4/18 Disposition: 01 DISCHARGE HOME Condition: Stable Denny Leon September 22, 2017 20:49
--- NOTE | 2017-09-22 20:52 | RADRPT ---
EXAM DATE/TIME: 09/22/2017 20:32 [facility] COMPARISON: No previous studies available for comparison. INDICATIONS : Left flank pain. ORAL CONTRAST: No oral contrast ingested. RADIATION DOSE: 18.57 CTDIvol (mGy) MEDICAL HISTORY : Renal calculi. SURGICAL HISTORY : Cholecystectomy. ENCOUNTER: Initial ACUITY: 1 day PAIN SCALE: 5/10 LOCATION: Left flank TECHNIQUE: Volumetric scanning of the abdomen and pelvis was performed. Using automated exposure control and ad justment of the mA and/or kV according to patient size, radiation dose was kept as low as reasonably achievable to obtain optimal diagnostic quality images. DICOM format image data is available electro nically for review and comparison. FINDINGS: Lung bases are clear. There is mild fatty liver. The spleen, adrenals and pancreas unremarkable. Prev ious cholecystectomy. There is an approximately 5 mm calculus in the left renal pelvis and a 5 mm x 3 mm calculus in the di stal left ureter just above the bladder resulting left-sided obstructive uropathy and mild left hydro nephrosis. On the right side there is a nonobstructing 4 mm calculus in the lower pole and upper pole. No bowel obstruction. No free air or free fluid. No acute bony abnormalities. CONCLUSION: 1. Left-sided obstructive uropathy with mild left hydronephrosis above it a 5 mm x 3 mm calculus in t he distal left ureter. Additional nonobstructing calculi in both kidneys as above. Emiliano Bar MD on September 22, 2017 at 20:46 Board Certified Radiologist. This report was verified electronically.
[2017-09-22] MEDS ORDERED: HYDROmorphone HCL PF 2 MG/ML VIAL IV PUSH ONE (21:30)
[2017-09-22] MEDS ORDERED: DICL75TA PO (21:43)
[2017-09-22] MEDS ORDERED: HYDR-3580 PO (21:43)
[2017-09-22] MEDS ORDERED: ZOFR4TAB3 SL (21:43)
[2017-09-22 21:47] LABS: BILIRUBIN, URINE NEG (NEG); BLOOD, URINE LARGE (NEG); GLUCOSE,URINE NEG (NEG); KETONE, URINE NEG (NEG); NITRITE,URINE NEG (NEG); URINE COLOR YELLOW (YELLW/STRAW); URINE LEUKOCYTE ESTERASE NEG (NEG)
[2017-09-22 21:52] LABS: HYALINE CAST, URINE 2 /lpf (RARE); MUCUS URINE FEW /lpf (OCC); SQUAMOUS EPITHELIAL CELL URINE 7 /hpf (0-5)
== END 2017-09-22 23:30 | disposition home or self-care (01) ==
LOC: NEPC 19:03
DX: N13.2 Hydronephrosis with renal and ureteral calculous obstruction (principal); R30.0 Dysuria; R35.8 Other polyuria; R11.0 Nausea; G47.30 Sleep apnea, unspecified; F17.200 Nicotine dependence, unspecified, uncomplicated; Z87.442 Personal history of urinary calculi; Z79.899 Other long term (current) drug therapy
CPT/HCPCS: 74176; 80053; 81001; 84703; 85025; 96361; 96374; 96375; 96376; 99284; J1170; J1885; J2405; J7030

== ENCOUNTER 2017-10-02 19:41 | Emergency (ER) | payer OTHER ==
[~2017-10-02 19:41] MED LIST changes: -BACT800T5 PO; -CEPH-460 PO; +DICL75TA PO; +HYDR-3580 PO; -IBUP-232 PO; -ZOFR4TAB PO; +ZOFR4TAB3 SL
[2017-10-02 20:28] VITALS: BP 175/80; PULSE 79; RESP 18; TEMP 99; O2SAT 99
--- NOTE | 2017-10-02 20:50 | PD ---
HPI Chief Complaint: Injury Time Seen by Provider: 20:35 Travel History International Travel<30 days: No Contact w/Intl Traveler<30days: No Traveled to known affect area: No History of Present Illness HPI 42-year-old white female presents emergency department for evaluation of a slip and fall at work today. She was evaluated at the urgent care approximately 1 hour ago and was referred to the ER for x-rays. She is to large for imaging at their facility due to her weight. Patient states that the injury occurred sometime around 830 this morning. She had slipped on a wet floor. She landed on her left knee and also twisted her left foot. Pain is mild to moderate. Worse with weightbearing. Some alleviation with ice, elevation and Tylenol. She states that is persistently swollen. She denies injury to her head, neck or back. No syncope. No sensory changes. PFSH Past Medical History Narrative Medical Nephrolithiasis Blood Disorders: No Heart Rhythm Problems: No Cancer: No Cardiac Catheterization: No Cardiovascular Problems: No High Cholesterol: No Congestive Heart Failure: No Diabetes: No Diminished Hearing: No Endocrine: No Gastrointestinal Disorders: No Genitourinary: Yes Heparin Induced Thrombocytopen: No Hypertension: No Immune Disorder: No Implanted Vascular Access Dvce: No Kidney Stones: Yes Musculoskeletal: No Neurologic: No Psychiatric: No Reproductive: No Respiratory: Yes (sleep apnea) Sleep Apnea: Yes (WEARS CPAP) Menopausal: Yes : 1 Para: 1 Ovarian Cysts: Yes (bilateral) Past Surgical History Abdominal Surgery: No Cardiac Surgery: No Cholecystectomy: Yes (2012) Coronary Artery Bypass Graft: No Ear Surgery: No Endocrine Surgery: No Eye Surgery: No Genitourinary Surgery: No Gynecologic Surgery: No Oral Surgery: No Pacemaker: No Thoracic Surgery: No Other Surgery: Yes Social History Alcohol Use: Yes (WINE OCCASIONALLY) Tobacco Use: Yes (1 PPW) Substance Use: No Allergies-Medications (Allergen,Severity, Reaction): Coded Allergies: No Known Allergies (Unverified , 10/02/17) Reported Meds & Prescriptions Reported Meds & Active Scripts Active Diclofenac Sodium DR (Diclofenac Sodium) 75 Mg Tabdr 75 Mg PO BID PRN Zofran Odt (Ondansetron Odt) 4 Mg Tab 4 Mg SL Q6HR PRN Hydrocodone-Acetaminophen 7.5 Mg-325 Mg Tab 1 Tab PO Q6H PRN Review of Systems General / Constitutional: No: Fever Eyes: No: Visual changes HENT: No: Headaches, Neck Stiffness, Neck Pain Cardiovascular: No: Chest Pain or Discomfort Respiratory: No: Shortness of Breath Gastrointestinal: No: Abdominal Pain Genitourinary: No: Dysuria Musculoskeletal: Positive: Arthralgias, Limited ROM, Cramping, Edema, No: Myalgias, Pain Skin: No Rash Neurologic: No: Weakness Psychiatric: No: Depression Endocrine: No: Polydipsia Hematologic/Lymphatic: No: Easy Bruising Physical Exam Narrative GENERAL: Well-developed in no apparent distress. Nontoxic appearing. Morbidly obese HEAD: Normocephalic, atraumatic. EYES: Pupils equal round and reactive. Extraocular motions intact. No scleral icterus. No injection or drainage. ENT: Nose clear. Throat without erythema, tonsillar hypertrophy or exudate. Uvula midline. Airway patent. NECK: Trachea midline. Supple, nontender, moves head freely. No central bony tenderness or spasm. CARDIOVASCULAR: Regular rate and rhythm without murmurs, gallops, or rubs. RESPIRATORY: Clear to auscultation. Breath sounds equal bilaterally. No wheezes , rales, or rhonchi. GASTROINTESTINAL: Abdomen soft, non-tender, nondistended. No hepato-splenomegaly , or palpable masses. No guarding. EXTREMITIES: Examination of the upper extremities as well as the right lower extremity are unremarkable for acute bony tenderness or deformity. The left lower extremity reveals tenderness over the patella. The skin is intact. There is no gross instability. Patient body habitus is large and unable to determine if there is any swelling. There is no obvious joint effusion. No pain in the hip or foot. She does complain of tenderness to the lateral aspect of the ankle and the talar fibular ligament region. There is no gross instability. She has intact sensation with good distal pulses. No pain in the heel or Achilles. BACK: Nontender without deformity. No flank tenderness. NEUROLOGICAL: Awake, alert and oriented x 3 .Cranial nerves grossly intact. Motor and sensory grossly within normal limits. Normal speech. Data Data Last Documented VS Vital Signs Date Time Temp Pulse Resp B/P (MAP) Pulse Ox O2 Delivery O2 Flow Rate FiO2 10/02/17 20:28 99.0 79 18 175/80 (111) 99 Orders Orders Ankle, Complete (Mhr0uil) (10/02/17 20:45) Knee, Complete (4vws) (10/02/17 20:45) Ice/Cold Pack (10/02/17 20:45) Ed Discharge Order (10/02/17 21:39) Splint Or Brace Apply/Monitor (10/02/17 21:39) MDM Medical Decision Making Medical Screen Exam Complete: Yes Emergency Medical Condition: Yes Medical Record Reviewed: Yes Interpretation(s) Left ankle: Negative fracture. Left knee: Negative for fracture. Positive tricompartment arthritis. Differential Diagnosis MDM: High Differential diagnoses: Fracture, sprain, strain, dislocation, contusion, neurovascular injury Narrative Course X-rays of the knee and ankle are negative for bony injury. Patient is given Simón wrap and ice packs. She has declined medication for pain. This is left knee contusion, left ankle sprain, fall Diagnosis Primary Impression: Left knee contusion Additional Impressions: Left ankle sprain Fall Patient Instructions: General Instructions Additional Instructions: Rest. Elevation. Ice packs for the next 3 days. Simón wrap No weight-bearing and then progress to weight-bearing as tolerated. Medications as directed Follow-up with an orthopedist or your doctor in one week. Return to the ER if any problems Med/Other Pt SpecificInfo: Prescription(s) given Scripts Diclofenac Sodium DR (Diclofenac Sodium DR) 75 Mg Tabdr 75 MG PO BID Y for PAIN SCALE 1 TO 10, #20 TAB 0 Refills Prov: Dario Starkey MD 10/02/17 Disposition: 01 DISCHARGE HOME Condition: Stable Emiliano Corbin October 02, 2017 20:50
--- NOTE | 2017-10-02 21:31 | RADRPT ---
EXAM DATE/TIME: 10/02/2017 21:03 [facility] COMPARISON: No previous studies available for comparison. INDICATIONS : Left ankle pain and swelling after fall. MEDICAL HISTORY : None. SURGICAL HISTORY : None. ENCOUNTER: Initial ACUITY: 1 day PAIN SCORE: 6/10 LOCATION: Left anterior ankle. FINDINGS: Left ankle is intact without evidence of fracture or dislocation. Mineralization is normal. There is mild ossific spurring of the medial malleolus which may or legs old ligament injuries. Moderate-sized plantar heel spur identified. Hindfoot otherwise grossly intact. CONCLUSION: No acute bony injury Lucio Dhaliwal MD on October 02, 2017 at 21:28 Board Certified Radiologist. This report was verified electronically.
--- NOTE | 2017-10-02 21:32 | RADRPT ---
EXAM DATE/TIME: 10/02/2017 21:06 [facility] COMPARISON: No previous studies available for comparison. INDICATIONS : Left knee pain and swelling after fall. MEDICAL HISTORY : None. SURGICAL HISTORY : None. ENCOUNTER: Initial ACUITY: 1 day PAIN SCORE: 7/10 LOCATION: Left anterior knee. FINDINGS: There are degenerative changes in the knee with tricompartmental osteophyte formation most significan tly in the patellofemoral compartment. No definite evidence of joint effusion or fracture. Mineraliza tion is normal. CONCLUSION: No acute bony injury Lucio Dhaliwal MD on October 02, 2017 at 21:29 Board Certified Radiologist. This report was verified electronically.
[2017-10-02] MEDS ORDERED: DICL75TA PO (21:38)
== END 2017-10-02 21:58 | disposition home or self-care (01) ==
LOC: NEPD 19:41
DX: S80.02XA Contusion of left knee, initial encounter (principal); S93.402A Sprain of unspecified ligament of left ankle, initial encounter; F17.200 Nicotine dependence, unspecified, uncomplicated; W01.0XXA Fall on same level from slipping, tripping and stumbling without subsequent striking against object, initial encounter
CPT/HCPCS: 73564; 73610; 99283

== ENCOUNTER 2018-02-24 05:49 | Observation (INO) ==
[2018-02-24] MEDS ORDERED: Morphine Inj 4 MG/ML Vial IV.PUSH ONE (06:02)
[2018-02-24] MEDS ORDERED: Ketorolac Inj 30 MG/ML (IVP) Vial IV.PUSH ONE (06:02)
--- NOTE | 2018-02-24 06:14 | ED ---
HPI General Chief complaint: Abdominal Pain Stated complaint: Abd/flank pain Time Seen by Provider: 02/24/18 05:59 History of Present Illness HPI narrative: 43-year-old female with history kidney stones, recently diagnosed complex atypical endometrial hyperplasia, seen by [employer] Dr. Guerin on 02/19/18, treated medically at this time with Provera with plans for hysterectomy after the patient loses weight, here for evaluation of left flank pain that radiates to her left lower abdomen. The patient first noted the pain 2 mornings ago which resolved on its. The pain then returned this morning, as sharp, severe, radiates to her left lower abdomen, associated with nausea but no vomiting. Patient has had similar pains in the past and believes that she is passing a kidney stone. No fevers or chills. No vaginal bleeding or discharge. No dysuria or hematuria. Related Data Home Medications Medication Instructions Recorded Confirmed medroxyprogesterone [Provera] 10 mg PO HS 02/24/18 02/24/18 Allergies Allergy/AdvReac Type Severity Reaction Status Date / Time No Known Allergies Allergy Unverified 10/02/17 20:32 Review of Systems ROS: all other systems reviewed are negative PMFSH Social History Social History Smoking Status: Never smoker How Often Do You Have a Drink Containing Alcohol: Never Recent Travel in [facility] within the Last 8 Weeks: No Recent Out of Country Travel within the Last 8 Weeks: No Exam Narrative Exam Narrative: GENERAL: Well-developed, well-nourished, overweight, standing/ pacing in exam room, uncomfortable because of pain. SKIN: Focused skin assessment warm/dry. No rash. HEAD: Atraumatic. Normocephalic. EYES: Pupils equal and round. No scleral icterus. No injection or drainage. ENT: No nasal bleeding or discharge. Mucous membranes pink and moist. NECK: Trachea midline. No JVD. CARDIOVASCULAR: Regular rate and rhythm. RESPIRATORY: No accessory muscle use. Clear to auscultation. Breath sounds equal bilaterally. GASTROINTESTINAL: Abdomen soft, non-tender, nondistended. MUSCULOSKELETAL: No obvious deformities. No clubbing. No cyanosis. No edema. No midline vertebral step-off or tenderness. No CVA tenderness. NEUROLOGICAL: Awake and alert. No obvious cranial nerve deficits. Motor grossly within normal limits. Normal speech. PSYCHIATRIC: Appropriate mood and affect; insight and judgment normal. Course Initial Documented Vital Signs Temperature 98.7 F 02/24/18 05:51 Pulse Rate 72 10 05:51 Respiratory Rate 24 02/24/18 05:51 Blood Pressure 189/93 H 02/24/18 05:51 Pulse Oximetry 98 10 05:51 Last Documented Vital Signs Temperature 98.7 F 02/24/18 05:51 Pulse Rate 56 L 02/24/18 06:35 Respiratory Rate 18 02/24/18 06:35 Blood Pressure 130/85 02/24/18 06:35 Pulse Oximetry 98 02/24/18 06:35 Medical Decision Making MDM Narrative Medical decision making narrative: CMP is essentially unremarkable. Vital signs reviewed. CBC is remarkable for hemoglobin 15.5, otherwise unremarkable. CMP is essentially unremarkable. UA shows large occult blood, 15-50 RBCs, 6-10 epithelial cells, negative leukocyte esterase, negative nitrites, not suggestive of UTI. CT abdomen pelvis: CONCLUSION: 6 mm stone at the distal left ureter approximately 5 cm above the left UVJ. 1. 2 stones in the proximal right ureter including a 7 mm stone at the right UPJ and a 6 mm stone approximately 4 L distal to the UPJ. 2. Several nonobstructing renal stone seen within the collecting systems bilaterally. 3. The patient is status post cholecystectomy. The patient was made aware of all findings. She was initially provided 4 mg of IV morphine and 30 mg of IV Toradol as well as 4 mg of IV Zofran with moderate improvement in her pain. Her pain worsens during the course of her emergency department visit and she was provided 1 mg of IV Dilaudid, again with moderate improvement in her pain. She still feels very nauseous. 7:50 AM: Case discussed with on-call urologist Dr. Ramirez who recommends that the patient be admitted/transferred to the main hospital where he can perform ureteroscopy. The patient is happy with this plan. Case discussed with hospitalist Dr. Cole who will admit the patient to the hospitalist service. 7:58 AM: The patient became nauseous and had an episode of vomiting in the emergency department. Another dose of 4 mg of IV Zofran will be given. Medical Screen Exam Complete: Yes Emergency Medical Condition: Yes Differential Diagnosis Differential Diagnosis: Nephrolithiasis/ureterolithiasis, pyelonephritis, UTI, cystitis, colitis/diverticulitis, AAA/dissection, musculoskeletal pain Lab Data Result diagrams: 02/24/18 06:15 02/24/18 06:15 Lab Results 02/24/18 02/24/18 02/24/18 Range/Units 06:15 06:15 06:15 CBC w Diff Auto diff final WBC 8.1 (4.0-11.0) th/mm3 RBC 5.20 (4.00-5.30) mil/mm3 Hgb 15.5 H (11.6-15.3) gm/dL Hct 44.3 (35.0-46.0) % MCV 85.3 (80.0-100.0) fL MCH 29.7 (27.0-34.0) pg MCHC 34.9 (32.0-36.0) % RDW 12.4 (11.6-17.2) % Plt Count 233 (150-450) th/mm3 MPV 7.6 (7.0-11.0) fL Neut % (Auto) 63.6 (16.0-70.0) % Lymph % (Auto) 21.3 (9.0-44.0) % [place] % (Auto) 8.3 H (0.0-8.0) % Eos % (Auto) 2.5 (0.0-4.0) % Baso % (Auto) 4.3 H (0.0-2.0) % Neut # (Auto) 5.2 (1.8-7.7) th/mm3 Lymph # (Auto) 1.7 (1.0-4.8) th/mm3 [place] # (Auto) 0.7 (0.0-0.9) th/mm3 Eos # (Auto) 0.2 (0.0-0.4) th/mm3 Baso # (Auto) 0.3 H (0.0-0.2) th/mm3 WBC Differential . Differential Comment . PT 10.3 (9.8-11.6) sec INR 1.0 Ratio APTT 27.1 (24.3-30.1) sec Sodium 140 (136-145) meq/L Potassium 4.0 (3.5-5.1) meq/L Chloride 109 H (98-107) meq/L Carbon Dioxide 21.9 (21.0-32.0) meq/L Anion Gap 9 (5-15) meq/L BUN 14 (7-18) mg/dL Creatinine 0.87 (0.50-1.00) mg/dL Estimated GFR 72 L (>89) mL/min Random Glucose 112 H (74-106) mg/dL Calcium 8.7 (8.5-10.1) mg/dL Total Bilirubin 0.4 (0.2-1.0) mg/dL AST 23 (15-37) U/L ALT 48 (10-53) U/L Alkaline Phosphatase 95 (45-117) U/L Total Protein 7.8 (6.4-8.2) g/dL Albumin 3.8 (3.4-5.0) g/dL Lipase 148 (73-393) U/L Urine Color (Yellw/Straw) Urine Clarity (Clear) Urine pH (5.0-8.5) Ur Specific [place] (1.002-1.035) Urine Protein (Neg-Trace) mg/dL Urine Glucose (UA) (Negative) mg/dL Urine Ketones (Negative) mg/dL Urine Occult Blood (Negative) Urine Nitrate (Negative) Urine Bilirubin (Negative) Urine Urobilinogen (Less than 2) mg/dL Ur Leukocyte Esterase (Negative) Urine RBC (0-3) /hpf Urine WBC (0-5) /hpf Ur Squamous Epith Cells (0-5) /hpf Micro UA Comment Ur Microscopic Review Urine Culture Comments 02/24/18 Range/Units 06:15 CBC w Diff WBC (4.0-11.0) th/mm3 RBC (4.00-5.30) mil/mm3 Hgb (11.6-15.3) gm/dL Hct (35.0-46.0) % MCV (80.0-100.0) fL MCH (27.0-34.0) pg MCHC (32.0-36.0) % RDW (11.6-17.2) % Plt Count (150-450) th/mm3 MPV (7.0-11.0) fL Neut % (Auto) (16.0-70.0) % Lymph % (Auto) (9.0-44.0) % [place] % (Auto) (0.0-8.0) % Eos % (Auto) (0.0-4.0) % Baso % (Auto) (0.0-2.0) % Neut # (Auto) (1.8-7.7) th/mm3 Lymph # (Auto) (1.0-4.8) th/mm3 [place] # (Auto) (0.0-0.9) th/mm3 Eos # (Auto) (0.0-0.4) th/mm3 Baso # (Auto) (0.0-0.2) th/mm3 WBC Differential Differential Comment PT (9.8-11.6) sec INR Ratio APTT (24.3-30.1) sec Sodium (136-145) meq/L Potassium (3.5-5.1) meq/L Chloride (98-107) meq/L Carbon Dioxide (21.0-32.0) meq/L Anion Gap (5-15) meq/L BUN (7-18) mg/dL Creatinine (0.50-1.00) mg/dL Estimated GFR (>89) mL/min Random Glucose (74-106) mg/dL Calcium (8.5-10.1) mg/dL Total Bilirubin (0.2-1.0) mg/dL AST (15-37) U/L ALT (10-53) U/L Alkaline Phosphatase (45-117) U/L Total Protein (6.4-8.2) g/dL Albumin (3.4-5.0) g/dL Lipase (73-393) U/L Urine Color Yellow (Yellw/Straw) Urine Clarity Slightly cloudy (Clear) Urine pH 5.5 (5.0-8.5) Ur Specific [place] 1.020 (1.002-1.035) Urine Protein Trace (Neg-Trace) mg/dL Urine Glucose (UA) Negative (Negative) mg/dL Urine Ketones Negative (Negative) mg/dL Urine Occult Blood Large H (Negative) Urine Nitrate Negative (Negative) Urine Bilirubin Negative (Negative) Urine Urobilinogen 0.2 (Less than 2) mg/dL Ur Leukocyte Esterase Negative (Negative) Urine RBC 15-50 H (0-3) /hpf Urine WBC 0-5 (0-5) /hpf Ur Squamous Epith Cells 6-10 H (0-5) /hpf Micro UA Comment Culture not ind Ur Microscopic Review Microscopic reviewed Urine Culture Comments Culture not ind Imaging Data Radiologist's impression: Abdomen/Pelvis CT 02/24/18 06:02 CONCLUSION: 1. 2 stones in the proximal right ureter including a 7 mm stone at the right UPJ and a 6 mm stone approximately 4 L distal to the UPJ. 2. Several nonobstructing renal stone seen within the collecting systems bilaterally. 3. The patient is status post cholecystectomy. Discharge Plan Discharge Disposition Patient Disposition: 30 Still Patient Discharge Condition Condition: Stable Discharge Details Diagnosis: Ureterolithiasis, Intractable pain Physicians Team ED Provider: Colten Soliman Primary Care Provider: Rupert Bullock V Rxs /Orders / Referrals /Forms Prescriptions: No Action medroxyprogesterone [Provera] 10 mg Tablet 10 mg PO HS RF: 0 Discharge Interventions Interventions: Vital Signs Last Done: 02/24/18 06:35 Status ED Status: With Doctor
[2018-02-24] MEDS ORDERED: Sod Chloride 0.9% Inj 1,000 ML IV.CONT SCH (06:15)
[2018-02-24 06:27] LABS: Bilirubin,Urine Negative (Negative); Clarity,Urine Slightly Cloudy (Clear); Color,Urine Yellow (Yellw/Straw); Glucose,Urine (UA) Negative (Negative); Leukocyte Esterase,Urine Negative (Negative); Nitrite,Urine Negative (Negative); PH,Urine 5.5 (5.0-8.5); Urobilinogen,Urine 0.2 mg/dL (Less than 2)
[2018-02-24 06:28] LABS: Baso # (Auto) 0.3 th/mm3 (0.0-0.2); Baso % (Auto) 4.3 % (0.0-2.0); Eos # (Auto) 0.2 th/mm3 (0.0-0.4); Eos % (Auto) 2.5 % (0.0-4.0); Hematocrit 44.3 % (35.0-46.0); Hemoglobin 15.5 gm/dL (11.6-15.3); Lymph # (Auto) 1.7 th/mm3 (1.0-4.8); Lymph % (Auto) 21.3 % (9.0-44.0); Mean Corpuscular HGB Conc 34.9 % (32.0-36.0); Mean Corpuscular Hemoglobin 29.7 pg (27.0-34.0); Mean Corpuscular Volume 85.3 fL (80.0-100.0); Mean Platelet Volume 7.6 fL (7.0-11.0); Mono # (Auto) 0.7 th/mm3 (0.0-0.9); Mono % (Auto) 8.3 % (0.0-8.0); Neut # (Auto) 5.2 th/mm3 (1.8-7.7); Neut % (Auto) 63.6 % (16.0-70.0); Platelet Count 233 th/mm3 (150-450); Red Cell Distribution Width 12.4 % (11.6-17.2); White Blood Count 8.1 th/mm3 (4.0-11.0)
[2018-02-24 06:36] LABS: WBC,Urine 0-5 /hpf (0-5)
[2018-02-24 06:40] LABS: Chloride 109 meq/L (98-107); Sodium 140 meq/L (136-145)
[2018-02-24 06:44] LABS: Activated Partial Thrombo Time 27.1 sec (24.3-30.1); Albumin 3.8 g/dL (3.4-5.0); Anion Gap 9 meq/L (5-15); Blood Urea Nitrogen 14 mg/dL (7-18); Calcium 8.7 mg/dL (8.5-10.1); Carbon Dioxide 21.9 meq/L (21.0-32.0); Glucose,Random 112 mg/dL (74-106); Lipase 148 U/L (73-393); Prothrombin Time 10.3 sec (9.8-11.6)
[2018-02-24 06:47] LABS: Alanine Aminotransferase 48 U/L (10-53); Aspartate Aminotransferase 23 U/L (15-37); Glomerular Filtration Rate 72 mL/min (>89)
[2018-02-24 06:48] LABS: Total Protein 7.8 g/dL (6.4-8.2)
[2018-02-24] MEDS ORDERED: HYDROmorphone PF Inj 2 MG/ML Vial IV.PUSH ONE (06:49)
[2018-02-24 06:50] LABS: Alkaline Phosphatase 95 U/L (45-117)
--- NOTE | 2018-02-24 07:15 | CT ---
EXAM DATE: 02/24/2018 6:18 AM EDT AGE/SEX: 43 years / Female INDICATIONS: Abdominal pain. Bilateral flank pain. Possible renal stone. CLINICAL DATA: This is the patient's initial encounter. Patient reports that signs and symptoms have been present for 1 day and indicates a pain score of 6/10. MEDICAL/SURGICAL HISTORY: . Renal stones. . RADIATION DOSE: 28.13 CTDI (mGy) COMPARISON: 09/22/[address] of the abdomen and pelvis. TECHNIQUE: Multiple contiguous axial images were obtained through the abdomen. Images were obtained using multiple row detector helical technique. Using automated exposure control and adjustment of the mA and/or kV according to patient size, radiation dose was kept as low as reasonably achievable to o btain optimal diagnostic quality images. DICOM format image data is available electronically for rev iew and comparison. FINDINGS: Lower Lungs: The visualized lower lungs are clear. Liver: The liver has a homogeneous density without space-occupying lesion. There is no dilation of th e biliary tree. The patient is status post cholecystectomy. Spleen: Homogeneous density without enlargement. Pancreas: Unremarkable without mass or calcification. Kidneys: There are nonobstructing renal stone seen in the renal collecting systems bilaterally inclu ding a 5 mm stone at the superior aspect of the right collecting system, a 3 mm stone at the inferior lateral right collecting system and a 3 mm stone at the inferior left collecting system. There are 2 stones within the proximal right ureter. This includes a 7 mm calcification at the UPJ and a 6 mm ca lcification approximately 4 cm distal to the UPJ. Significant hydronephrosis is not seen on either si de. Adrenal Glands: Unremarkable. Aorta: The aorta and proximal iliac vessels are grossly unremarkable without aneurysmal dilation. Bowel/Mesentery: The bowel loops are grossly unremarkable. The cecum and sigmoid colon have a normal configuration. Abdominal Wall: Intact. Retroperitoneum: No evidence of adenopathy in the retrocrural, para-aortic, or deep pelvic regions. Bladder: Contours are smooth. Reproductive Organs: No abnormal masses or calcifications seen. Inguinal: The inguinal region is unremarkable without evidence of adenopathy. Bony Structures: Unremarkable. CONCLUSION: 1. 2 stones in the proximal right ureter including a 7 mm stone at the right UPJ and a 6 mm stone ap proximately 4 L distal to the UPJ. 2. Several nonobstructing renal stone seen within the collecting systems bilaterally. 3. The patient is status post cholecystectomy. Electronically signed by: Lucio Pena MD 02/24/2018 7:14 AM EDT
[2018-02-24] MEDS ORDERED: Morphine Inj 4 MG/ML Vial IV.PUSH PRN (08:03)
[2018-02-24] MEDS ORDERED: Naloxone Inj 0.4 MG/ML Vial IV.PUSH PRN (08:03)
[2018-02-24] MEDS ORDERED: Acetaminophen 325 MG Tablet PO PRN ×2 (08:03→08:05)
[2018-02-24] MEDS ORDERED: Bisacodyl 10 MG Supp RECTAL PRN (08:05)
[2018-02-24] MEDS: Sod Chloride 0.9% Inj 1,000 ML IV.CONT SCH ×3 (08:09→17:36)
[2018-02-24] MEDS: Senna/Docusate Sodium 8.6/50 MG Tablet PO SCH ×2 (08:34→19:59)
--- NOTE | 2018-02-24 09:15 | P.HP ---
History of Present Illness Primary Care Physician: Rupert Bullock MD Chief Complaint: flank pain History of Present Illness: This is a 43 year old female with a history of recurrent kidney stones, obesity , sleep apnea on CPAP and recently diagnosed complex atypical endometrial hyperplasia followed by Dr. Guerin. Past surgical history with knee surgery and cholecystectomy. No pertinent family history per patient woke up this morning with severe sharp left flank pain associated with nausea. She also has similar pain on the left lower quadrant with no alleviating or precipitating factor. No fever, chills, UTI symptoms, constipation and diarrhea. She first noted the pain 2 mornings ago which resolved on its own. She already knew it is her kidney stone. Abdominal CT shows 2 stones in the proximal right ureter including a 7 mm stone at the right UPJ and a 6 mm stone approximately 4 cm distal to the left UPJ. Also several nonobstructing renal stone bilaterally. On-call urology recommended transfer to [facility] for ureteroscopy. Patient received IV morphine, IV Toradol and Zofran which temporarily relieved her discomfort. All other systems reviewed negative. Review of Systems All other systems reviewed negative except as stated in HPI PMFSH - History History Provided By: Patient - Tobacco History Smoking Status: Never smoker - Alcohol History How Often Do You Have a Drink Containing Alcohol: Never - Travel History Recent Travel in the [place] Within the Last 8 Weeks: No Recent Travel Out of the Country Within the Last 8 Weeks: No - Immunization History Tetanus Immunization: <5 Years Medications and Allergies Active Medications: Active Medications Acetaminophen (Tylenol) 650 mg PO Q6H PRN PRN Reason: PAIN SCALE 1 TO 2 Acetaminophen (Tylenol) 650 mg PO Q4H PRN PRN Reason: Temp > 100.4 Hydrocodone Bitart/Acetaminophen ([place] 5/325) 1 tab PO Q4H PRN PRN Reason: PAIN SCALE 3 TO 5 Hydrocodone Bitart/Acetaminophen ([place] 7.5/325) 1 tab PO Q4H PRN PRN Reason: PAIN SCALE 6 TO 10 Al Hydroxide/Mg Hydroxide (Milk Of Magnesia Liq) 30 ml PO Q12H PRN PRN Reason: Mild Constipation Bisacodyl (Dulcolax Supp) 10 mg RECTAL DAILY PRN PRN Reason: SEVERE CONSITIPATION Sodium Chloride (Ns Inj) 1,000 mls @ 125 mls/hr IV.CONT .Q8H MELLO Stop: 02/24/18 14:14 Last Admin: 02/24/18 06:31 Dose: 125 mls/hr Sodium Chloride (Ns Inj) 1,000 mls @ 100 mls/hr IV.CONT .Q10H [facility] Last Admin: 02/24/18 08:09 Dose: 100 mls/hr Ketorolac Tromethamine (Toradol Inj) 15 mg IV.PUSH Q6H PRN PRN Reason: PAIN 3-5; IF UABLE TO TAKE PO Stop: 03/01/18 08:02 Ketorolac Tromethamine (Toradol Inj) 30 mg IV.PUSH Q6H PRN PRN Reason: PAIN 6-10;IF UNABLE TO TAKE PO Stop: 03/01/18 08:02 Lactulose (Lactulose Liq) 30 ml PO DAILY PRN PRN Reason: SEVERE CONSITIPATION Morphine Sulfate (Morphine Inj) 2 mg IV.PUSH Q3H PRN PRN Reason: BREAKTHROUGH PAIN Naloxone HCl (Narcan Inj) 0.4 mg IV.PUSH UNSCH PRN PRN Reason: SEE LABEL COMMENTS Ondansetron HCl (Zofran Inj) 4 mg IV.PUSH Q6H PRN PRN Reason: NAUSEA OR VOMITING Senna/Docusate Sodium (Annemarie-Colace) [address] [facility] Last Admin: 02/24/18 08:34 Dose: Not Given Sennosides (Senokot) 17.2 mg PO Q12H PRN PRN Reason: Moderate Constipation Sodium Chloride (Ns Flush) 2 ml IV.FLUSH PRN PRN PRN Reason: FLUSH AFTER USING IV ACCESS Last Admin: 02/24/18 07:11 Dose: 2 ml Allergies Allergy/AdvReac Type Severity Reaction Status Date / Time No Known Allergies Allergy Unverified 10/02/17 20:32 Home Medications Medication Instructions Recorded Confirmed Type medroxyprogesterone [Provera] 10 mg PO HS 02/24/18 02/24/18 History Exam Vital signs: Vital Signs 02/24/18 05:51 02/24/18 06:35 02/24/18 08:05 Temperature 98.7 F Pulse Rate 72 56 L Respiratory Rate 24 18 Blood Pressure 189/93 H 130/85 Pulse Oximetry 98 98 98 Intake & Output 02/23/18 02/24/18 02/24/18 18:59 06:59 18:59 Weight 163.3 kg Narrative: GENERAL: Well-developed, obese in distress due to pain SKIN: Warm and dry. HEAD: Atraumatic. Normocephalic. EYES: Pupils equal and round. No scleral icterus. No injection or drainage. ENT: No nasal bleeding or discharge. Mucous membranes pink and moist. NECK: Trachea midline. No JVD. CARDIOVASCULAR: Regular rate and rhythm. RESPIRATORY: No accessory muscle use. Clear to auscultation. Breath sounds equal bilaterally. GASTROINTESTINAL: Abdomen soft, slightly tender left lower quadrant, obese. Left CVA tenderness MUSCULOSKELETAL: Extremities without clubbing, cyanosis, or edema. No obvious deformities. NEUROLOGICAL: Awake and alert. No obvious cranial nerve deficits. Motor grossly within normal limits. Five out of 5 muscle strength in the arms and legs. Normal speech. PSYCHIATRIC: Appropriate mood and affect; insight and judgment normal. Results - Labs CBC & Chem 7: 02/24/18 06:15 02/24/18 06:15 Labs: Laboratory Results - last 24 hr 02/24/18 02/24/18 02/24/18 06:15 06:15 06:15 CBC w Diff Auto diff final WBC 8.1 RBC 5.20 Hgb 15.5 H Hct 44.3 MCV 85.3 MCH 29.7 MCHC 34.9 RDW 12.4 Plt Count 233 MPV 7.6 Neut % (Auto) 63.6 Lymph % (Auto) 21.3 [place] % (Auto) 8.3 H Eos % (Auto) 2.5 Baso % (Auto) 4.3 H Neut # (Auto) 5.2 Lymph # (Auto) 1.7 [place] # (Auto) 0.7 Eos # (Auto) 0.2 Baso # (Auto) 0.3 H WBC Differential . Differential Comment . PT 10.3 INR 1.0 APTT 27.1 Sodium 140 Potassium 4.0 Chloride 109 H Carbon Dioxide 21.9 Anion Gap 9 BUN 14 Creatinine 0.87 Estimated GFR 72 L Random Glucose 112 H Calcium 8.7 Total Bilirubin 0.4 AST 23 ALT 48 Alkaline Phosphatase 95 Total Protein 7.8 Albumin 3.8 Lipase 148 Urine Color Urine Clarity Urine pH Ur Specific [place] Urine Protein Urine Glucose (UA) Urine Ketones Urine Occult Blood Urine Nitrate Urine Bilirubin Urine Urobilinogen Ur Leukocyte Esterase Urine RBC Urine WBC Ur Squamous Epith Cells Micro UA Comment Ur Microscopic Review Urine Culture Comments 02/24/18 06:15 CBC w Diff WBC RBC Hgb Hct MCV MCH MCHC RDW Plt Count MPV Neut % (Auto) Lymph % (Auto) [place] % (Auto) Eos % (Auto) Baso % (Auto) Neut # (Auto) Lymph # (Auto) [place] # (Auto) Eos # (Auto) Baso # (Auto) WBC Differential Differential Comment PT INR APTT Sodium Potassium Chloride Carbon Dioxide Anion Gap BUN Creatinine Estimated GFR Random Glucose Calcium Total Bilirubin AST ALT Alkaline Phosphatase Total Protein Albumin Lipase Urine Color Yellow Urine Clarity Slightly cloudy Urine pH 5.5 Ur Specific [place] 1.020 Urine Protein Trace Urine Glucose (UA) Negative Urine Ketones Negative Urine Occult Blood Large H Urine Nitrate Negative Urine Bilirubin Negative Urine Urobilinogen 0.2 Ur Leukocyte Esterase Negative Urine RBC 15-50 H Urine WBC 0-5 Ur Squamous Epith Cells 6-10 H Micro UA Comment Culture not ind Ur Microscopic Review Microscopic reviewed Urine Culture Comments Culture not ind - Imaging Impressions Abdomen/Pelvis CT 02/24/18 06:02 CONCLUSION: 1. 2 stones in the proximal right ureter including a 7 mm stone at the right UPJ and a 6 mm stone approximately 4 L distal to the UPJ. 2. Several nonobstructing renal stone seen within the collecting systems bilaterally. 3. The patient is status post cholecystectomy. Caprini VTE Risk Assessment Caprini VTE Risk Assessment: No/Low Risk (score <= 1) Caprini Risk Assessment Model: Point Value = 1 Point Value = 2 Point Value = 3 Point Value = 5 Age 41-60 Minor surgery BMI > 25 kg/m2 Swollen legs Varicose veins or History of unexplained or recurrent spontaneous Oral contraceptives or hormone replacement Sepsis (< 1 month) Serious lung disease, including pneumonia (< 1 month) Abnormal pulmonary function Acute myocardial infarction Congestive heart failure (< 1 month) History of inflammatory bowel disease Medical patient at bed rest Age 61-74 Arthroscopic surgery Major open surgery (> 45 min) Laparoscopic surgery (> 45 min) Malignancy Confined to bed (> 72 hours) Immobilizing plaster cast Central venous access Age >= 75 History of VTE Family history of VTE Factor V Leiden Prothrombin [id number] Lupus anticoagulant Anticardiolipin antibodies Elevated serum homocysteine Heparin-induced thrombocytopenia Other congenital or acquired thrombophilia Stroke (< 1 month) Elective arthroplasty Hip, pelvis, or leg fracture Acute spinal cord injury (< 1 month) Prophylaxis Regimen: Total Risk Factor Score Risk Level Prophylaxis Regimen 0-1 Low Early ambulation 2 Moderate Order ONE of the following: *Sequential Compression Device (SCD) *Heparin 5000 units SQ BID 3-4 Higher Order ONE of the following medications: *Heparin 5000 units SQ TID *Enoxaparin/Lovenox 40 mg SQ daily (WT < 150 kg, CrCl > 30 mL/min) *Enoxaparin/Lovenox 30 mg SQ daily (WT < 150 kg, CrCl > 10-29 mL/min) *Enoxaparin/Lovenox 30 mg SQ BID (WT < 150 kg, CrCl > 30 mL/min) AND/OR *Sequential Compression Device (SCD) 5 or more Highest Order ONE of the following medications: *Heparin 5000 units SQ TID (Preferred with Epidurals) *Enoxaparin/Lovenox 40 mg SQ daily (WT < 150 kg, CrCl > 30 mL/min) *Enoxaparin/Lovenox 30 mg SQ daily (WT < 150 kg, CrCl > 10-29 mL/min) *Enoxaparin/Lovenox 30 mg SQ BID (WT < 150 kg, CrCl > 30 mL/min) AND *Sequential Compression Device (SCD) Assessment and Plan - Plan This is a 43 year old female with a history of recurrent kidney stones, obesity , sleep apnea on CPAP and recently diagnosed complex atypical endometrial hyperplasia followed by Dr. Guerin. She presents with acute onset of severe left flank and left lower quadrant pain associated with nausea and vomiting. Abdominal CT shows 2 stones in the proximal right ureter including a 7 mm stone at the right UPJ and a 6 mm stone approximately 4 cm distal to the left UPJ. Also several nonobstructing renal stone bilaterally. Obstructive uropathy with bilateral ureteral stone. On-call urology recommended transfer to [facility] for ureteroscopy. Keep patient n.p.o., continue IV hydration and pain management with Lortab, IV Toradol and IV Dilaudid counseled regarding narcotics. Continue Zofran. Strain urine. RN for urine test DVT prophylaxis with SCD and early ambulation Discharge Planning: Per
[2018-02-24] MEDS: HYDROmorphone PF Inj 2 MG/ML Vial IV.PUSH PRN ×2 (09:21→12:50)
[2018-02-24] MEDS ORDERED: Lidocaine PF 1% Inj 5 ML Syringe OTHER ONE (13:57)
[2018-02-24] MEDS ORDERED: Succinylcholine Inj 100 MG/5 ML Syringe IV.PUSH ONE (13:57)
[2018-02-24] MEDS ORDERED: Sugammadex Inj 200 MG/2 ML Vial IV.PUSH ONE (14:42)
--- NOTE | 2018-02-24 14:53 | MB ---
cc: Mp Ramirez DO DATE: 02/24/2018 Ms. Hernandez is a 43-year-old female who presents with left-sided flank pain with history of nephrolithiasis. She was recently diagnosed with atypical endometrial hyperplasia by Dr. Guerin and is scheduled to undergo hysterectomy in the future. CT scan on admission showed 2 stones in the proximal right ureter which were 6 and 7 mm in size. Her pain is on the left, and she has a 4-6 mm left distal UPJ stone. Several stones are also noted to be nonobstructing within the kidneys bilaterally. MEDICAL HISTORY: Endometrial hyperplasia, history of nephrolithiasis in the past. PAST SURGICAL HISTORY: She denies any surgery in the past. SOCIAL HISTORY: She denies smoking, drinking, or using drugs. FAMILY HISTORY: Noted for stones. REVIEW OF SYSTEMS: She notes left-sided flank pain with some nausea and vomiting at times. No chest pain, shortness of breath, gait disturbance, bleeding disorders, headaches, or skin lesions. Remaining review of systems were reviewed and were negative. PHYSICAL EXAMINATION: VITAL SIGNS: Today, temperature 97.8, heart rate 54, respiratory rate 18, blood pressure is 100/55. GENERAL: She is an obese 43-year-old female, in no acute distress. HEENT: Normocephalic, atraumatic. Pupils equal, round, reactive to light. Extraocular movements intact. NECK: Supple. HEART: Regular rate and rhythm. LUNGS: Clear. ABDOMEN: Soft. There is left-sided tenderness noted. Left CVA tenderness is also noted. GENITOURINARY: Normal female external genitalia. EXTREMITIES: No evidence of cyanosis, clubbing, or edema. NEUROLOGIC: Cranial nerves 2 through 12 are intact. LABORATORY DATA: White count is 8.1, hemoglobin 15.5, hematocrit 44.3, platelet count 233. Sodium 140, potassium 4.0, chloride 109, CO2 is 21.9, BUN of 14, creatinine 0.87, glucose is 112. Urinalysis shows 15-[address] scan again shows 2 ureteral stones and a distal left ureteral stone. ASSESSMENT: This is a 43-year-old female with bilateral ureteral calculi causing obstruction. PLAN: For cystoscopy and bilateral stent insertion with possible ureteroscopy on the left with stone extraction. Risks and benefits were discussed, and the patient is willing to proceed. Mp DO WANDY Allred/susy , 02:25 PM , 02:32 PM
--- NOTE | 2018-02-24 15:08 | P.OP ---
- Preoperative Diagnosis (1) Bilateral ureteral calculi (2) Ureteral obstruction - Postoperative Diagnosis (1) Bilateral ureteral calculi (2) Ureteral obstruction Date of procedure: 02/24/18 Procedure: Cystoscopy with left ureteroscopy with laser lithotripsy and stone extraction. Left retrograde pyelogram with left double-J stent insertion. Right retrograde pyelogram with right double-J stent insertion Anesthesia: CHEMAA Surgeon: Mp Ramirez DO Estimated blood loss (mL): 0 Pathology: none sent (Left ureteral calculus) Operation and Findings: 43-year-old female presented with left-sided flank pain. CT scan revealed a 6 mm distal left ureteral stone with 2 6 mm stones involving the right kidney. She left-sided flank pain upon presentation. Decision made to bring the patient to the operating room and cystoscopy with left ureteroscopy and laser lithotripsy with stone extraction and left double-J stent insertion. Patient would also need a stent placed on the right side to alleviate obstruction due to stones within the ureter. Risk and benefits were discussed preoperatively she is willing to proceed. Patient brought the operating room and identified by myself is Luna Hernandez. She is placed in the dorsolithotomy position, prepped and draped in sterile fashion, received preprocedure antibiotics and general endotracheal tube anesthesia was administered. 22 [place] cystoscope was inserted the bladder marshall cystoscopy did not reveal any. The left ureteral orifice was identified and a 0.35 sensor wire was passed up the left ureter with a good curl in the kidney under fluoroscopic imaging guidance. The short rigid ureteroscope was then utilized and passed into the bladder and along the wire up to the lower ureter. The stone was then visualized and using a 200 m laser fiber at a setting of 10 and 1000. The stone was fragmented up and the nitinol basket was used to retrieve the fragments. A retrograde pyelogram on the left side was then performed demonstrating no more filling defects within the ureter. A 6 [place] 22 cm left double-J stent was placed with a good curl in the kidney and the bladder at this time. The open-ended catheter was passed into the distal right ureteral orifice and retrograde pyelogram was performed. Stone was visualized within the ureter. A 0.35 sensor wire was then passed through the opening catheter and up into the kidney with a good curl. The open-ended catheter was then removed. A 6 [place] 22 cm right double-J stent was placed with a good curl in the kidney and good curl in the bladder. The bladder was evacuated and she was awoken extubated transferred Stable condition. She will need to follow-up in the office to be scheduled for right ureteroscopy with laser lithotripsy and stone extraction at that time.
[2018-02-24] MEDS ORDERED: *Ondansetron Inj 4 MG/2 ML Vial PERIprocedural Use ONLY ONE (15:20)
[2018-02-24] MEDS ORDERED: fentaNYL Citrate Inj 100 MCG/2 ML Ampul ONE (15:23)
[2018-02-24] MEDS: Ketorolac Inj 30 MG/ML (IVP) Vial IV.PUSH PRN ×2 (16:17→22:27)
[2018-02-25] MEDS: Ketorolac Inj 30 MG/ML (IVP) Vial IV.PUSH PRN ×3 (05:28→23:51)
[2018-02-25 05:58] LABS: Baso % (Auto) 0.3 % (0.0-2.0); Hematocrit 40.3 % (35.0-46.0); Hemoglobin 14.2 gm/dL (11.6-15.3); Lymph # (Auto) 0.7 th/mm3 (1.0-4.8); Lymph % (Auto) 5.6 % (9.0-44.0); Mean Corpuscular HGB Conc 35.1 % (32.0-36.0); Mean Corpuscular Hemoglobin 29.8 pg (27.0-34.0); Mean Corpuscular Volume 84.8 fL (80.0-100.0); Mean Platelet Volume 8.1 fL (7.0-11.0); Mono # (Auto) 0.5 th/mm3 (0.0-0.9); Mono % (Auto) 3.6 % (0.0-8.0); Neut # (Auto) 11.9 th/mm3 (1.8-7.7); Neut % (Auto) 90.5 % (16.0-70.0); Platelet Count 201 th/mm3 (150-450); Red Blood Count 4.75 mil/mm3 (4.00-5.30); Red Cell Distribution Width 12.8 % (11.6-17.2); White Blood Count 13.1 th/mm3 (4.0-11.0)
[2018-02-25 06:17] LABS: Calcium 9.1 mg/dL (8.5-10.1); Carbon Dioxide 22.1 meq/L (21.0-32.0); Potassium 4.3 meq/L (3.5-5.1)
[2018-02-25] MEDS: Senna/Docusate Sodium 8.6/50 MG Tablet PO SCH ×2 (08:37→20:51)
--- NOTE | 2018-02-25 09:41 | P.PNURO ---
Subjective Patient symptoms today: Pt seen and examined. Feeling better. Some bladder pressure. Objective Vital Signs: Vital Signs 02/24/18 12:00 02/24/18 15:15 02/24/18 15:30 Temperature 97.8 F 97.7 F Pulse Rate 54 L 59 L 56 L Respiratory Rate 18 20 16 Blood Pressure 100/55 L 158/74 H 152/76 H Pulse Oximetry 99 100 02/24/18 15:45 02/24/18 15:50 02/24/18 20:00 Temperature 97.6 F 98.4 F Pulse Rate 57 L 56 L Respiratory Rate 16 16 Blood Pressure 150/74 H 149/75 H Pulse Oximetry 96 96 96 02/24/18 22:38 02/25/18 00:00 02/25/18 03:31 Temperature 98.3 F 98.5 F Pulse Rate 65 61 Respiratory Rate 18 18 18 Blood Pressure 168/80 H 142/69 H Pulse Oximetry 97 02/25/18 04:00 02/25/18 08:00 Temperature 98 F 98.1 F Pulse Rate 56 L 64 Respiratory Rate 16 18 Blood Pressure 163/79 H 164/81 H Pulse Oximetry 99 95 Intake & Output 02/24/18 02/25/18 02/25/18 18:59 06:59 18:59 Intake Total 2100 / 2100 300 / 300 Output Total 300 / 300 1950 / 1950 Balance 1800 / 1800 -1650 / -1650 Weight 164.7 kg Intake: IV 1500 / 1500 300 / 300 NS Inj 1,000 ML @ 100 mls/hr IV 1500 / 1500 300 / 300 .CONT .Q10H MELLO Rx#:[id number] Anesthesia Amount 600 / 600 Output: Urine 300 / 300 1949 / 1950 Other: # Bowel Movements 0 Result Diagrams: 02/25/18 04:40 02/25/18 04:40 Medications and IVs: Active Medications Generic Name Dose Route Start Last Admin Trade Name Freq PRN Reason Stop Dose Admin Acetaminophen 650 mg 02/24/18 08:03 Tylenol PO Q6H PRN PAIN SCALE 1 TO 2 Acetaminophen 650 mg 02/24/18 08:05 Tylenol PO Q4H PRN Temp > 100.4 Hydrocodone Bitart/Acetaminophen 1 tab 02/24/18 08:03 02/25/18 08:35 [place] 5/325 PO 1 tab Q4H PRN Administration PAIN SCALE 3 TO 5 Hydrocodone Bitart/Acetaminophen 1 tab 02/24/18 08:03 02/25/18 02:44 [place] 7.5/325 PO 1 tab Q4H PRN Administration PAIN SCALE 6 TO 10 Al Hydroxide/Mg Hydroxide 30 ml 02/24/18 08:05 Milk Of Magnesia Liq PO Q12H PRN Mild Constipation Bisacodyl 10 mg 02/24/18 08:05 Dulcolax Supp RECTAL DAILY PRN SEVERE CONSITIPATION Hydromorphone HCl 1 mg 02/24/18 09:11 02/24/18 12:50 Dilaudid Pf Inj IV.PUSH 1 mg Q3H PRN Administration BREAKTHROUGH PAIN Ketorolac Tromethamine 15 mg 02/24/18 08:03 02/24/18 22:27 Toradol Inj IV.PUSH 03/01/18 08:02 15 mg Q6H PRN Administration PAIN 3-5; IF UABLE TO TAKE PO Ketorolac Tromethamine 30 mg 02/24/18 08:03 02/25/18 05:28 Toradol Inj IV.PUSH 03/01/18 08:02 30 mg Q6H PRN Administration PAIN 6-10;IF UNABLE TO TAKE PO Lactulose 30 ml 02/24/18 08:05 Lactulose Liq PO DAILY PRN SEVERE CONSITIPATION Miscellaneous Information 1 each 02/24/18 15:45 Misc Nursing Information OTHER 02/25/18 15:45 UNSCH PRN SEE LABEL COMMENTS Naloxone HCl 0.4 mg 02/24/18 08:03 Narcan Inj IV.PUSH UNSCH PRN SEE LABEL COMMENTS Ondansetron HCl 4 mg 02/24/18 08:05 02/24/18 22:26 Zofran Inj IV.PUSH 4 mg Q6H PRN Administration NAUSEA OR VOMITING Senna/Docusate Sodium 1 tab 02/24/18 09:00 02/25/18 08:37 Annemarie-Colace PO 1 tab BID MELLO Administration Sennosides 17.2 mg 02/24/18 08:05 Senokot PO Q12H PRN Moderate Constipation Sodium Chloride 2 ml 02/24/18 06:02 02/24/18 07:11 Ns Flush IV.FLUSH 2 ml PRN PRN Administration FLUSH AFTER USING IV ACCESS Objective Remarks: Abd:soft,nt,nd Assessment and Plan - Plan Stable s/p Left URS with laser lithotripsy; stone extraction and bilateral JJ stent insertion Stable for D/C Will need right URS with laser litho and stone extraction as outpt.
--- NOTE | 2018-02-25 11:11 | P.PN ---
Subjective Interval history: Follow-up visit for obstructive uropathy. Patient seen and examined resting in bed comfortably in no acute distress. Continues to complain of some suprapubic pain however this is much better than when she first came in. Urine initially cleared up however morning now having hematuria, was told that this would be normal by urologist. Patient is concerned over pain control, since she has had multiple kidney stones in the past and every time she has had to come to the emergency department due to severe pain. She underwent cystoscopy with lithotripsy and stone distraction on the left along with bilateral stent placement however was told that she will need to return for another procedure regarding right-sided stones. Patient feels as if she is still requiring IV Toradol for pain control and is concerned over going home tonight and severe pain. She also reports that she did not have a readily accessible 24-hour pharmacy available to her. Discussed oral pain medication and trial of these without IV Toradol to assess for pain control today and throughout the night, if tolerates discharging tomorrow morning. Nurse later reports patient with increased pain, switch IV Toradol to p.o. Return back around 5:45 PM as patient and mom have more questions. Patient with ongoing right-sided pain, oral pain medication and oral Toradol with no relief. Patient has been trying to adequately hydrate and ambulating in the frost with no relief. Concerned that her pain is not adequately controlled with plans of discharge. We discussed holding discharge as planned in keeping overnight. Resume IV Toradol and make urology aware tomorrow morning. Physical Exam Vital signs: Vital Signs 02/24/18 12:00 02/24/18 15:15 02/24/18 15:30 Temperature 97.8 F 97.7 F Pulse Rate 54 L 59 L 56 L Respiratory Rate 18 20 16 Blood Pressure 100/55 L 158/74 H 152/76 H Pulse Oximetry 99 100 02/24/18 15:45 02/24/18 15:50 02/24/18 20:00 Temperature 97.6 F 98.4 F Pulse Rate 57 L 56 L Respiratory Rate 16 16 Blood Pressure 150/74 H 149/75 H Pulse Oximetry 96 96 96 02/24/18 22:38 02/25/18 00:00 02/25/18 03:31 Temperature 98.3 F 98.5 F Pulse Rate 65 61 Respiratory Rate 18 18 18 Blood Pressure 168/80 H 142/69 H Pulse Oximetry 97 02/25/18 04:00 02/25/18 08:00 Temperature 98 F 98.1 F Pulse Rate 56 L 64 Respiratory Rate 16 18 Blood Pressure 163/79 H 164/81 H Pulse Oximetry 99 95 Intake & Output 02/24/18 02/25/18 02/25/18 18:59 06:59 18:59 Intake Total 2100 / 2100 300 / 300 Output Total 300 / 300 1949 / 1950 Balance 1800 / 1800 -1650 / -1650 Weight 164.7 kg Intake: IV 1500 / 1500 300 / 300 NS Inj 1,000 ML @ 100 mls/hr IV 1500 / 1500 300 / 300 .CONT .Q10H MELLO Rx#:[id number] Anesthesia Amount 600 / 600 Output: Urine 300 / 300 1949 / 1949 Other: # Bowel Movements 0 Narrative: GENERAL: Well-developed, obese in no acute distress. SKIN: Warm and dry. HEAD: Atraumatic. Normocephalic. EYES: Pupils equal and round. No scleral icterus. No injection or drainage. ENT: No nasal bleeding or discharge. Mucous membranes pink and moist. NECK: Trachea midline. No JVD. CARDIOVASCULAR: Regular rate and rhythm. RESPIRATORY: No accessory muscle use. Clear to auscultation. Breath sounds equal bilaterally. GASTROINTESTINAL: Abdomen soft, slightly tender left lower quadrant, obese. Suprapubic tenderness. MUSCULOSKELETAL: Extremities without clubbing, cyanosis, or edema. No obvious deformities. NEUROLOGICAL: Awake and alert. No obvious cranial nerve deficits. Motor grossly within normal limits. Five out of 5 muscle strength in the arms and legs. Normal speech. PSYCHIATRIC: Appropriate mood and affect; insight and judgment normal. Results - Labs CBC & Chem 7: 02/25/18 04:40 02/25/18 04:40 Laboratory Results - last 24 hr 02/25/18 02/25/18 04:40 04:40 WBC 13.1 H D RBC 4.75 Hgb 14.2 Hct 40.3 MCV 84.8 MCH 29.8 MCHC 35.1 RDW 12.8 Plt Count 201 MPV 8.1 Neut % (Auto) 90.5 H Lymph % (Auto) 5.6 L [place] % (Auto) 3.6 Eos % (Auto) 0.0 Baso % (Auto) 0.3 Neut # (Auto) 11.9 H Lymph # (Auto) 0.7 L [place] # (Auto) 0.5 Eos # (Auto) 0.0 Baso # (Auto) 0.0 WBC Differential . Differential Comment Auto diff final Sodium 141 Potassium 4.3 Chloride 110 H Carbon Dioxide 22.1 Anion Gap 9 BUN 13 Creatinine 0.89 Estimated GFR 70 L Random Glucose 143 H Calcium 9.1 - Procedures 02/24/18 Cystoscopy with left ureteroscopy with laser lithotripsy and stone extraction. Left retrograde pyelogram with left double-J stent insertion. Right retrograde pyelogram with right double-J stent insertion Assessment and Plan - Plan This is a 43 year old female with a history of recurrent kidney stones, obesity , sleep apnea on CPAP and recently diagnosed complex atypical endometrial hyperplasia followed by Dr. Guerin. She presents with acute onset of severe left flank and left lower quadrant pain associated with nausea and vomiting. Abdominal CT shows 2 stones in the proximal right ureter including a 7 mm stone at the right UPJ and a 6 mm stone approximately 4 cm distal to the left UPJ. Also several nonobstructing renal stone bilaterally. Obstructive uropathy with bilateral ureteral stone. -Neurology consulted, appreciate assistance. -Patient is s/p Cystoscopy with left ureteroscopy with laser lithotripsy and stone extraction. Left retrograde pyelogram with left double-J stent insertion. Right retrograde pyelogram with right double-J stent insertion by on 02/24 - Cleared for DC from urology standpoint. Will need right ureteroscopy w/ laser lithotripsy and stone extraction as outpatient per . - Eating and drinking well, DC IVF - Pain control with [place] (increased to 10mg for severe pain), switch to p.o Toradol. Discussed with patient this is only a temporary medication due to side effects. - Monitor overnight for pain control, if controlled DC tomorrow in the a.m. 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 if pain is controlled.
[2018-02-25] MEDS ORDERED: Ketorolac 10 MG Tablet PO PRN (15:33)
[2018-02-26] MEDS: Ketorolac Inj 30 MG/ML (IVP) Vial IV.PUSH PRN ×2 (07:36→13:24)
[2018-02-26] MEDS: Senna/Docusate Sodium 8.6/50 MG Tablet PO SCH (08:00)
--- NOTE | 2018-02-26 11:22 | P.DS ---
Date of admission: 02/24/18 08:07 Primary care physician: Rupert Bullock MD Attending physician on discharge: Carl James Anticipated date of discharge: 02/26/18 Brief History from admission: This is a 43 year old female with a history of recurrent kidney stones, obesity , sleep apnea on CPAP and recently diagnosed complex atypical endometrial hyperplasia followed by Dr. Guerin. Past surgical history with knee surgery and cholecystectomy. No pertinent family history per patient woke up this morning with severe sharp left flank pain associated with nausea. She also has similar pain on the left lower quadrant with no alleviating or precipitating factor. No fever, chills, UTI symptoms, constipation and diarrhea. She first noted the pain 2 mornings ago which resolved on its own. She already knew it is her kidney stone. Abdominal CT shows 2 stones in the proximal right ureter including a 7 mm stone at the right UPJ and a 6 mm stone approximately 4 cm distal to the left UPJ. Also several nonobstructing renal stone bilaterally. On-call urology recommended transfer to [facility] for ureteroscopy. Patient received IV morphine, IV Toradol and Zofran which temporarily relieved her discomfort. All other systems reviewed negative. DS: Medications - Discharge Medications Prescriptions: hydrocodone-acetaminophen 1 tab PO Q4H PRN #18 tab PRN Reason: Pain Scale 6 To 10 ketorolac 10 mg PO Q6H PRN #18 tab PRN Reason: Pain 1-5 phenazopyridine [Pyridium] 4 mg/kg PO TID PRN #15 tab PRN Reason: pain with urination DS: Summary Hospital Course: 43-year-old female with a history of recurrent kidney stones, obesity, sleep apnea on CPAP and recently diagnosed complex atypical endometrial hyperplasia followed by Dr. Guerin. Who presents to the emergency department on 02/24 with severe left flank pain and left lower quadrant pain associated with nausea and vomiting. Urology was consulted and patient underwent cystoscopy with left ureteroscopy with laser lithotripsy and stone extraction. Left retrograde pyelogram with left double-J stent insertion. Right retrograde pyelogram with right double-J stent insertion by on 02/24. She was followed up by Dr. Ramirez 02/25 and cleared for discharge with recommendations to follow-up as outpatient for right ureteroscopy w/ laser lithotripsy and stone extraction. Her pain was not controlled yesterday and her discharge held. Increase in [place] to 10 mg, trial of oral Toradol with little relief. IV Toradol was continued and Dr. Ramirez made aware this morning regarding ongoing symptoms. Pain this morning is ongoing especially on the right side. Still requiring IV Toradol. Review of VS this a.m are stable with no fevers, HR and BP stable. Call placed to Dr. Ramirez and call received back and spoke to him via phone. He recommends discharging home with oral pain medication and Pyridium. He has no further plans or interventions during her hospitalization recommends outpatient follow-up. He recommends oral pain control and Pyridium. States that pain is expected with stent placement. This was discussed with patient in her room and with mother on the phone. Prescriptions for pain medication, Toradol, and Pyridium printed. Discussed with patient, charge nurse, Dr. James agreeable with discharge. Patient will be discharged today per recommendations. Patient seen around 2:00pm being wheeled down by staff at discharge with mother at side. E-force checked, patient had last prescription of Oxycodone tabs filled 01/23/18 with quantity of 10. Rx for pain medications provided, 3 days worth. - Time Spent with Patient Total time spent providing and/or coordinating discharge services: Less than 30 minutes - Quality: VTE Deep Vein Thrombosis/Pulmonary Embolism Present on Admission: No Exam Vital signs: Vital Signs 02/25/18 12:00 02/25/18 12:27 02/25/18 14:10 Temperature 98.4 F Pulse Rate 67 Respiratory Rate 18 18 18 Blood Pressure 176/82 H Pulse Oximetry 97 02/25/18 16:00 02/25/18 17:21 02/25/18 20:00 Temperature 97.8 F 98.6 F Pulse Rate 68 60 Respiratory Rate 22 18 16 Blood Pressure 207/96 H 149/68 H Pulse Oximetry 98 95 02/26/18 00:00 02/26/18 08:00 Temperature 98.5 F 97.4 F L Pulse Rate 58 L 55 L Respiratory Rate 16 16 Blood Pressure 138/69 112/60 Pulse Oximetry 96 99 Intake & Output 02/25/18 02/26/18 02/26/18 18:59 06:59 18:59 Intake Total 1800 / 1800 960 / 960 Output Total 750 / 750 Balance 1050 / 1050 960 / 960 Weight 159.8 kg Intake: Oral 1800 / 1800 960 / 960 Output: Urine 750 / 750 Other: Date of Last Bowel Movement 02/26/18 Narrative: GENERAL: Well-developed, obese female pacing in the room with complaints of pain. SKIN: Warm and dry. HEAD: Atraumatic. Normocephalic. EYES: Pupils equal and round. No scleral icterus. No injection or drainage. ENT: No nasal bleeding or discharge. Mucous membranes pink and moist. NECK: Trachea midline. No JVD. RESPIRATORY: Unlabored breathing. GASTROINTESTINAL: Abdomen soft, slightly tender left lower quadrant, obese. Suprapubic tenderness. MUSCULOSKELETAL: Extremities without clubbing, cyanosis, or edema. No obvious deformities. NEUROLOGICAL: Awake and alert. No obvious cranial nerve deficits. Motor grossly within normal limits. Normal speech. PSYCHIATRIC: Appropriate mood and affect; insight and judgment normal. Results Procedures completed during hospitalization: 02/24/18 Cystoscopy with left ureteroscopy with laser lithotripsy and stone extraction. Left retrograde pyelogram with left double-J stent insertion. Right retrograde pyelogram with right double-J stent insertion Pending studies at discharge: Pending at discharge 02/24/18 09:07 Surgical [PTH] Routine - Impressions ITS Impressions Abdomen/Pelvis CT 02/24/18 06:02 CONCLUSION: 1. 2 stones in the proximal right ureter including a 7 mm stone at the right UPJ and a 6 mm stone approximately 4 L distal to the UPJ. 2. Several nonobstructing renal stone seen within the collecting systems bilaterally. 3. The patient is status post cholecystectomy. Discharge Plan - Discharge Disposition Patient Disposition: 01 Discharge Home - Discharge Condition Condition: Stable - Discharge Order Discharge Orders: Discharge Order (Routine); Ordered 02/26/18 Ordered By: Ismael Jo - Discharge Details Discharge Comment: Discharge discussed with , , RN, nurse discharge , patient and patients mother. - Physicians Team Primary Care Provider: Rupert Bullock V Attending Provider: Carl James Other Providers: Mp Ramirez DO ; [place],Insurance
[2018-02-26 12:26] VITALS: BP 193/87; PULSE 82; RESP 18; TEMP 97.9; O2SAT 99
== END 2018-02-26 13:54 | disposition home or self-care (01) ==
LOC: PHEDA 05:49 → PHED 05:49 → PHEDA 11:12 → N07 11:47
PROVIDERS: ADMIT Internal Medicine; ATTEND Internal Medicine